=== PATIENT | male | born 1950 | race Caucasian/White ===

== ENCOUNTER 2020-01-19 10:29 | Emergency (ER) | payer MEDICARE ==
[~2020-01-19] VITALS: Ht 180.3 cm; Wt 150.1 kg
[~2020-01-19 10:29] MED LIST: ALDACTONE100 MG PO; ALDACTONE25 MG PO; ALEVE220 MG PO; FUROSEMIDE40 MG PO; IRON TAB PO; KEFLEX500 MG PO; LEVAQUIN500 MG PO; LORTAB 7.5-5001 EACH PO; METFORMIN HCL500 MG PO; NYQUIL D COLD177 ML PO; TYLENOL # 31 EA PO; TYLENOL WITH C1 EACH PO; Tylenol PO
--- OUTSIDE RECORDS SUMMARY | 2020-01-19 10:35 | XMS REPORT | Summary of Care ---
Author Author [facility] Organization [facility] Address Unknown Phone Unavailable Encounter GENARO Ocasio(MUNDO) [id number] Date(s): 08/07/15 - 08/07/[address] Discharge Disposition: Home Attending Physician: Rogelio Marte MD Referring Physician: Arron Cee NP [employer] Vital Signs No data available for this section Problem List No data available for this section Allergies, Adverse Reactions, Alerts Substance Reaction Severity Status NKDA Active Medications No data available for this section Results BODY FLUIDS Most recent to 1 oldest [Reference Range]: Albumin BF 0.2 g/dL *NA* (08/07/15 12:00 PM) Alb BF Type Paracen *NA* (08/07/15 12:00 PM) Prot BF Type Paracen *NA* (08/07/15 12:00 PM) LDH BF Type Paracen *NA* (08/07/15 12:00 PM) Protein BF 0.6 g/dL *NA* (08/07/15 12:00 PM) LDH BF 98 unit/L *NA* (08/07/15 12:00 PM) Color BF [Colorless] Yellow (08/07/15 12:00 PM) Clarity BF [Clear] Clear (08/07/15 12:00 PM) RBC BF 1820 /mm3 *NA* (08/07/15 12:00 PM) WBC BF 250 /mm3 *NA* (08/07/15 12:00 PM) Segs BF 4 % *NA* (08/07/15 12:00 PM) Lymph BF 4 % *NA* (08/07/15 12:00 PM) Macrophage BF 92 % *NA* (08/07/15 12:00 PM) Meso BF Occasional (08/07/15 12:00 PM) CellCnt BF Type Paracen (08/07/15 12:00 PM) Immunizations No data available for this section Procedures No data available for this section Social History No data available for this section Assessment and Plan No data available for this section
--- OUTSIDE RECORDS SUMMARY | 2020-01-19 10:35 | XMS REPORT | Summary of Care ---
Author Author [facility] Organization [facility] Address Unknown Phone Unavailable Encounter HQ Ninfa(MUNDO) [id number] Date(s): 11/12/16 - 11/12/16 [facility] [address] [place] [phone]- [phone] Discharge Disposition: Home or Self Care Attending Physician: Lay Reddy MD Referring Physician: Lay Reddy MD Vital Signs 1 2 3 Most recent to oldest [Reference Range]: 180.34 cm (11/06/16 2:50 PM) Height 97.7 DegF (11/12/16 6:38 AM) Temperature Oral [96.4-99.1 DegF] 128/71 mmHg (11/12/16 8:45 AM) 117/73 mmHg (11/12/16 8:30 AM) 109/73 mmHg (11/12/16 8:15 AM) Blood Pressure [90-140/60-90 mmHg] 16 BRMIN (11/12/16 8:45 AM) 17 BRMIN (11/12/16 8:30 AM) 16 BRMIN (11/12/16 8:15 AM) Respiratory Rate [14-20 BRMIN] 64 bpm (11/12/16 8:45 AM) 61 bpm (11/12/16 8:30 AM) 70 bpm (11/12/16 8:15 AM) Peripheral Pulse Rate [60-100 bpm] 119.091 kg (11/12/16 5:50 AM) Weight 36.62 m2 (11/12/16 5:50 AM) Body Mass Index Problem List Condition Effective Dates Status Health Status Informan t Diabetes(Confirmed) Active Dizziness(Confirmed) Active Hypertension(Confirm Active ed) Depression(Confirmed Active ) Fatty liver disease, Active nonalcoholic(Confirm ed) Neuropathy(Confirmed Active ) Allergies, Adverse Reactions, Alerts Substance Reaction Severity Status propranolol itching Active spironolactone blurred vision Active Medications ANES flumazenil 0.2 mg, 2 mL, Route: IVP, Drug form: INJ, PRN, Dosing Weight 119.091, kg, PRN Be nzodiazepine Reversal, Initial dose, Start date: 11/12/16 8:48:00 MANAGER OF PHOTOGRAPHY, Duration: 8 hr, Stop date: 11/12/16 16:47:00 MANAGER OF PHOTOGRAPHY Notes: (Same as: Romazicon) Start Date: 11/12/16 Stop Date: 11/12/16 Status: Completed ANES HYDROmorphone 0.5 mg, 0.25 mL, Route: IVP, Drug form: INJ, Q5Min, Dosing Weight 119.091, kg, P RN Pain Score 7-10, Start date: 11/12/16 8:48:00 MANAGER OF PHOTOGRAPHY, Duration: 8 doses or times , Stop date: 11/12/16 16:47:00 MANAGER OF PHOTOGRAPHY Notes: Same as Dilaudid Start Date: 11/12/16 Stop Date: 11/12/16 Status: Completed ANES naloxone 0.4 mg, 1 mL, Route: IVP, Drug form: INJ, Q2MIN, Dosing Weight 119.091, kg, PRN Narcotic Reversal, Start date: 11/12/16 8:48:00 MANAGER OF PHOTOGRAPHY, Duration: 8 doses or times, Stop date: 11/12/16 16:47:00 MANAGER OF PHOTOGRAPHY Notes: Same as Narcan Start Date: 11/12/16 Stop Date: 11/12/16 Status: Completed ANES ondansetron 4 mg, 2 mL, Route: IVP, Drug form: INJ, ONCE, Dosing Weight 119.091, kg, PRN Marcelo sea & Vomiting, Start date: 11/12/16 8:48:00 MANAGER OF PHOTOGRAPHY Notes: (Same as: Aman) MEDICATION WASTE Product Size: 4 mgProduct Was leon: ___ mg Start Date: 11/12/16 Stop Date: 11/13/16 Status: Discontinued Lactated Ringers 1,000 mL 1,000 mL, Rate: 40 ml/hr, Infuse over: 25 hr, Route: IV, Dosing Weight 119.091 k g, Total Volume: 1,000, Start date: 11/12/16 6:53:00 MANAGER OF PHOTOGRAPHY, Duration: 30 day, Stop date: 12/12/16 6:52:00 CDT Start Date: 11/12/16 Stop Date: 11/13/16 Status: Discontinued Saline Flush 0.9% 10 ml, Route: IVP, Drug Form: INJ, Dosing Weight 119.091, kg, PRN, PRN Line Flus h, Start date: 11/12/16 7:50:00 MANAGER OF PHOTOGRAPHY, Duration: 30 day, Stop date: 12/12/16 8:49: 00 CDT Notes: Same as: BD Posiflush Sterile Start Date: 11/12/16 Stop Date: 11/13/16 Status: Discontinued Results HEMATOLOGY Most recent to 1 oldest [Reference Range]: PT [12.0-14.7 12.6 seconds seconds] (11/12/16 6:10 AM) INR [0.85-1.17] 0.92 (11/12/16 6:10 AM) PTT [22.9-35.8 31.7 seconds seconds] (11/12/16 6:10 AM) Immunizations No data available for this section Procedures Procedure Date Related Diagnosis Body Site Kidney transplantation1 12/31/15 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 Alcohol Past, Previous treatment: N one. Smoking Status Former smoker; Stopped at a ge: 31; Exposure to Tobacco Smoke None; Cigarette Smoking Last 365 Days No; Reg Smoking Cessation Counseling No Assessment and Plan No data available for this section
--- OUTSIDE RECORDS SUMMARY | 2020-01-19 10:35 | XMS REPORT | Summary of Care ---
Author Author [facility] Organization [facility] Address Unknown Phone Unavailable Encounter GENARO Ocasio(MUNDO) [id number] Date(s): 08/15/15 - 08/15/15 [facility] [address] [place] [address] Discharge Disposition: Home Attending Physician: Rogelio Marte MD Referring Physician: Rogelio Marte MD Vital Signs No data available for this section Problem List No data available for this section Allergies, Adverse Reactions, Alerts Substance Reaction Severity Status NKDA Active Medications No data available for this section Results BODY FLUIDS Most recent to 1 oldest [Reference Range]: Color BF [Colorless] Yellow (08/15/15 11:36 AM) Clarity BF [Clear] Slight Cloudy (08/15/15 11:36 AM) Supernat BF Yellow [Colorless] *ABN* (08/15/15 11:36 AM) RBC BF 2350 /mm3 *NA* (08/15/15 11:36 AM) WBC BF 73 /mm3 *NA* (08/15/15 11:36 AM) Segs BF 5 % *NA* (08/15/15 11:36 AM) Lymph BF 42 % *NA* (08/15/15 11:36 AM) Eos BF 1 % *NA* (08/15/15 11:36 AM) Macrophage BF 52 % *NA* (08/15/15 11:36 AM) Meso BF Occasional (08/15/15 11:36 AM) CellCnt BF Type Paracen (08/15/15 11:36 AM) Immunizations No data available for this section Procedures No data available for this section Social History No data available for this section Assessment and Plan No data available for this section
--- OUTSIDE RECORDS SUMMARY | 2020-01-19 10:35 | XMS REPORT | Continuity of Care Document ---
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 Name Role Phone [facility] Exchange Unavailable Un available Problems Problem Status Onset Date Classification Date Reported Comments Source KNEE OSTEOARTHRITIS Active 11/12/2016 [facility] Subhash LEFT KNEE OSTEOARTHRITIS Active 11/12/2016 [facility] Subhash OSTEOARTHRITIS OF THE RT KNEE Active 11/06/2016 [facility] Subhash BRICE KNEE OSTEOARTHRITIS Active 10/23/2016 [facility] BDDC VARICES Active 10/29/2015 [facility] BDDC ASCITES Active 10/21/2015 [facility] DDC-ESOPHAGEAL VARCIES / COLON CANCER Active 10/11/2015 [facility] BDDC - ASCITES Active 08/05/2015 [facility] R18.8 Active 07/23/2015 [facility] Diabetes mellitus (disorder) A ctive Problem 08/2017 [facility] Dizziness (finding) Active Problem 11/22/2016 [facility] Hypertensive disorder, systemic arterial (disorder) Active Problem 11/22/2016 [facility] Depressive disorder (disorder) Active Problem 08/2017 [facility] Non-alcoholic fatty liver (disorder) Active Problem 08/2017 [facility] Neuropathy (disorder) Active Problem 11/22/2016 [facility] OSTEOARTHRITIS OF KNEE, UNSPECIFIED Active [facility] Medications Medication Details Route Status Patient Instructions Ordering Provider Order Date Source Insulin, Aspart, Human Notes: Roll in palms of hands gently; Do not shake vigorously. (Same as: NovoLOG) "single patient use only" WASTE: F/P - Black; E - Municipal Trash Bin Stable for 28 days at room temperature. Expires in days from Date No Longer Active 11/19/2016 [facility] Acetaminophen 325 MG / Hydrocodone Leonid trate 10 MG Oral Tablet [Gillespie 10/325] Notes: Do not exceed 4gm/day of acetamin ophen. (Same as: Gillespie 325/10) No Longer Active 11/19/2016 [facility] Acetaminophen 325 MG / Hydrocodone Leonid trate 5 MG Oral Tablet [Gillespie 5/325] Notes: (Same as: Gillespie 325/5) Do not ex ceed 4gm/day of acetaminophen. No Longer Activ e 11/19/2016 [facility] Ondansetron Notes: (Same as: Hai huerta) MEDICATION WASTE Product Size: 4 mg Product Wasted: ___ mg No Longer Active 11/19/2016 [facility] Morphine Notes: (Same as:MORPh ine Sulfate) No Longer Active 11/19/2016 [facility] Flumazenil Notes: (Same as: Ro mazicon) No Longer Active 11/19/2016 [facility] Naloxone Notes: Same as Narcan No Longer Active 11/19/2016 [facility] Hydromorphone Notes: Same as D ilaudid No Longer Active 11/19/2016 [facility] Hydralazine Notes: (Same as: A presoline) Push over 5 minutes No Longer Active 11/19/2016 [facility] Acetaminophen Notes: Infuse ov er 15 minutes Do not exceed 4gm/day of acetaminophen MEDICATION WASTE Product Size: 1000 mg Product Wasted: ___ mg No Longer Active 11/19/2016 [facility] Saline Flush 0.9% Notes: Same as: BD Posiflush Sterile No Longer Active 11/19/2016 [facility] Lactated Ringers 1,000 mL 1,00 0 mL, Rate: TKO, Route: IV, Dosing Weight 118.636 kg, Total Volume: 1,000, Start date: 11/19/16 7:49:00 [employer]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, Duration: 1 doses or times, Stop date: 11/19/16 15:48:00 FUN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 Inactive 11/19/2016 [facility] Hydromorphone Notes: Same as D ilaudid Inactive 11/12/2016 [facility] Naloxone Notes: Same as Narcan Inactive 11/12/2016 [facility] Flumazenil Notes: (Same as: Ro mazicon) Inactive 11/12/2016 [facility] Ondansetron Notes: (Same as: Hai huerta) MEDICATION WASTE Product Size: 4 mg Product Wasted: ___ mg No Longer Active 11/12/2016 [facility] Saline Flush 0.9% Notes: Same as: BD Posiflush Sterile No Longer Active 11/12/2016 [facility] Lactated Ringers 1,000 mL 1,00 0 mL, Rate: 40 ml/hr, Infuse over: 25 hr, Route: IV, Dosing Weight 119.091 kg, Total Volume: 1,000, Start date: 11/12/16 6:53:00 FUN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, Duration: 30 day, Stop date: 12/12/16 6:52:00 CDT No Longer Active 11/12/2016 [facility] Saline Flush 0.9% Notes: Same as: BD Posiflush Sterile No Longer Active 10/29/2016 [facility] Lactated Ringers 1,000 mL 1,00 0 mL, Rate: 25 ml/hr, Infuse over: 40 hr, Route: IV, Dosing Weight 117.727 kg, Total Volume: 1,000, Start date: 10/29/16 7:14:00 FUN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, Duration: 30 day, Stop date: 11/28/16 7:13:00 CDT No Longer Active 10/29/2016 [facility] Sulfamethoxazole 800 MG / Trimethoprim 1 60 MG Oral Tablet 1 tab, PO, Q-M-W-F, 0 Refill(s) Active 10/26/2016 [facility] Gunnison-3 1000 mg oral capsule 1 ,000 mg = 1 cap, PO, BID, 0 Refill(s) Active 10/26/2016 [facility] Linagliptin 5 MG Oral Tablet [Tradjenta] 5 mg = 1 tab, PO, QAM, 0 Refill(s) Active 10/26/2016 [facility] mycophenolate mofetil 500 mg oral tablet 500 mg = 1 tab, PO, BID, 0 Refill(s) Active 10/26/2016 [facility] multivitamin with minerals 0 R efill(s) Active 10/26/2016 [facility] modafinil 100 mg oral tablet 1 00 mg = 1 tab, PO, QAM, 0 Refill(s) Active 10/26/2016 [facility] mirtazapine 15 mg oral tablet 15 mg = 1 tab, PO, Bedtime, 0 Refill(s) Active 10/26/2016 [facility] metoprolol tartrate 25 mg oral tablet 12.5 mg = 0.5 tab, PO, BID, 0 Refill(s) Active 10/26/2016 [facility] magnesium oxide 400 mg oral tablet 400 mg = 1 tab, PO, Daily, 0 Refill(s) Active 10/26/2016 [facility] insulin detemir 100 UNT/ML Injectable So lution [Levemir] 15 unit, SUB-Q, Bedtime, 0 Refill(s) Active 10/26/2016 [facility] Furosemide 20 MG Oral Tablet 2 0 mg = 1 tab, PO, Daily, 0 Refill(s) Active 10/26/2016 [facility] escitalopram 10 mg oral tablet 10 mg = 1 tab, PO, Daily, 0 Refill(s) Active 10/26/2016 [facility] Ergocalciferol 56492 UNT Oral Capsule 50,000 IntlUnit = 1 cap, PO, Daily, 0 Refill(s) Active 10/26/2016 [facility] Calcium Carbonate 1250 MG / Cholecalcife rol 200 UNT Oral Tablet 1 tab, PO, BID, 0 Refill(s) Active 10/26/2016 [facility] cyclosporine, modified 100 MG Oral Capsule 100 mg = 1 cap, PO, Q12H, 0 Refill(s) Active 10/26/2016 [facility] aspirin 81 mg tablet, enteric coated 81 mg = 1 tab, PO, Daily, # 0 tab, 0 Refill(s) Active 10/26/2016 [facility] Allergies, Adverse Reactions, Alerts Substance Category Reaction Severity Reaction type Status Date Reported Comments Source propranolol Assertion itching Drug allergy Active [facility] spironolactone Assertion blurred vision Drug allergy Active [facility] Immunizations No Data Provided for This Section Results Order Name Results Value Reference Range Date Interpretation Comments Source HEMATOLOGY aPTT 33.6 22.9 - 35.8 11/19/2016 [facility] HEMATOLOGY PROTIME 13.0 12.0 - 14.7 11/19/2016 [facility] HEMATOLOGY INR 0.96 0.85 - 1.17 11/19/2016 [facility] HEMATOLOGY PROTIME 12.6 12.0 - 14.7 11/12/2016 [facility] HEMATOLOGY INR 0.92 0.85 - 1.17 11/12/2016 [facility] HEMATOLOGY aPTT 31.7 22.9 - 35.8 11/12/2016 [facility] CHEM PANEL eGFR 50 10/29/2016 Result Comment: The eGFR is calculated using the CKD-EPI formula. In most young, healthy individuals the eGFR will be >90 mL/min/1.73m2. The eGFR declines with age. An eGFR of 60-89 may be normal in some populations, particularly the elderly, for whom the CKD-EPI formula has not been extensively validated. Use of the eGFR is not recommended in the following populations:

Individuals with unstable creatinine concentrations, including patients and those with serious co-morbid conditions.

Patients with extremes in muscle mass or diet.

The data above are obtained from the National Kidney Disease Education Program (NKDEP) which additionally recommends that when the eGFR is used in patients with extremes of body mass index for purposes of drug dosing, the eGFR should be multiplied by the estimated BMI. [facility] CHEM PANEL Chloride Lvl 102 95 - 109 10/29/2016 [facility] CHEM PANEL CO2 27 24 - 32 10/29/2016 [facility] CHEM PANEL Calcium Lvl 8.3 8.5 - 10.5 10/29/2016 [facility] CHEM PANEL Total Protein 7.1 6.4 - 8.4 10/29/2016 [facility] CHEM PANEL Albumin Lvl 3.4 3.5 - 5.0 10/29/2016 [facility] CHEM PANEL Potassium Lvl 4.6 3.5 - 5.1 10/29/2016 [facility] CHEM PANEL Creatinine Lvl 1.44 0.50 - 1.40 10/29/2016 [facility] CHEM PANEL Sodium Lvl 139 135 - 145 10/29/2016 [facility] CHEM PANEL BUN 26 7 - 22 10/29/2016 [facility] CHEM PANEL Glucose Lvl 119 70 - 99 10/29/2016 [facility] CHEM PANEL ASPARTATE TRANSAMINASE 20 0 - 37 10/29/2016 [facility] CHEM PANEL ALANINE AMINOTRANSFERASE 26 0 - 65 10/29/2016 [facility] CHEM PANEL Bili Total 0.4 0.2 - 1.3 10/29/2016 [facility] CHEM PANEL Alk Phos 113 39 - 136 10/29/2016 [facility] CHEM PANEL A/G Ratio 0.9 0.7 - 1.6 10/29/2016 [facility] CHEM PANEL B/C Ratio 18 6 - 25 10/29/2016 [facility] CHEM PANEL Globulin 3.7 2.7 - 4.2 10/29/2016 [facility] CHEM PANEL AGAP 14.6 10.0 - 20.0 10/29/2016 [facility] HEMATOLOGY Platelet 147 133 - 450 10/29/2016 [facility] HEMATOLOGY MPV 8.9 7.4 - 10.4 10/29/2016 [facility] HEMATOLOGY MCV 89.1 80.0 - 94.0 10/29/2016 [facility] HEMATOLOGY MCH 29.0 27.0 - 31.0 10/29/2016 [facility] HEMATOLOGY RBC 4.53 4.70 - 6.10 10/29/2016 [facility] HEMATOLOGY Hgb 13.2 14.0 - 18.0 10/29/2016 [facility] HEMATOLOGY Hct 40.4 42.0 - 54.0 10/29/2016 [facility] HEMATOLOGY WBC 7.5 3.7 - 10.4 10/29/2016 [facility] HEMATOLOGY RDW 15.6 11.5 - 14.5 10/29/2016 [facility] HEMATOLOGY MCHC 32.6 32.0 - 36.0 10/29/2016 [facility] HEMATOLOGY INR 0.92 0.85 - 1.17 10/29/2016 [facility] HEMATOLOGY aPTT 33.1 22.9 - 35.8 10/29/2016 [facility] HEMATOLOGY PROTIME 12.6 12.0 - 14.7 10/29/2016 [facility] HEMATOLOGY Segs 47.3 45.0 - 75.0 10/29/2016 [facility] HEMATOLOGY Lymphocytes 35.9 20.0 - 40.0 10/29/2016 [facility] HEMATOLOGY Eosinophils 3.3 0.0 - 4.0 10/29/2016 [facility] HEMATOLOGY Monocytes 12.7 2.0 - 12.0 10/29/2016 [facility] HEMATOLOGY Monocytes # 1.0 0.0 - 0.8 10/29/2016 [facility] HEMATOLOGY Eosinophils # 0.2 0.0 - 0.5 10/29/2016 [facility] HEMATOLOGY Basophils # 0.1 0.0 - 0.2 10/29/2016 [facility] HEMATOLOGY Lymphocytes # 2.7 1.0 - 5.5 10/29/2016 [facility] HEMATOLOGY Basophils 0.8 0.0 - 1.0 10/29/2016 [facility] HEMATOLOGY Segs-Bands # 3.6 1.5 - 8.1 10/29/2016 [facility] CHEM PANEL Phosphorus 3.1 2.5 - 4.5 10/24/2015 [facility] CHEM PANEL Magnesium Lvl 2.2 1.8 - 2.4 10/24/2015 [facility] CHEM PANEL Bili Indirect 3.3 0.0 - 1.0 10/24/2015 [facility] CHEM PANEL A/G Ratio 0.8 0.7 - 1.6 10/24/2015 [facility] CHEM PANEL Globulin 2.9 2.0 - 4.0 10/24/2015 [facility] CHEM PANEL Bili Direct 1.6 0.0 - 0.3 10/24/2015 [facility] CHEM PANEL Bili Total 4.9 0.2 - 1.3 10/24/2015 [facility] CHEM PANEL Alk Phos 125 39 - 136 10/24/2015 [facility] CHEM PANEL AST 41 0 - 37 10/24/2015 [facility] CHEM PANEL ALT 24 0 - 65 10/24/2015 [facility] CHEM PANEL Albumin Lvl 2.4 3.5 - 5.0 10/24/2015 [facility] CHEM PANEL Total Protein 5.3 6.4 - 8.4 10/24/2015 [facility] CHEM PANEL eGFR 26 10/24/2015 Result Comment: The eGFR is calculated using the CKD-EPI formula. In most young, healthy individuals the eGFR will be >90 mL/min/1.73m2. The eGFR declines with age. An eGFR of 60-89 may be normal in some populations, particularly the elderly, for whom the CKD-EPI formula has not been extensively validated. Use of the eGFR is not recommended in the following populations:

Individuals with unstable creatinine concentrations, including patients and those with serious co-morbid conditions.

Patients with extremes in muscle mass or diet.

The data above are obtained from the National Kidney Disease Education Program (NKDEP) which additionally recommends that when the eGFR is used in patients with extremes of body mass index for purposes of drug dosing, the eGFR should be multiplied by the estimated BMI. [facility] CHEM PANEL Calcium Lvl 7.6 8.5 - 10.5 10/24/2015 [facility] CHEM PANEL CO2 26 24 - 32 10/24/2015 [facility] CHEM PANEL Chloride Lvl 106 95 - 109 10/24/2015 [facility] CHEM PANEL Potassium Lvl 3.8 3.5 - 5.1 10/24/2015 [facility] CHEM PANEL Creatinine Lvl 2.50 0.50 - 1.40 10/24/2015 [facility] CHEM PANEL Sodium Lvl 143 135 - 145 10/24/2015 [facility] CHEM PANEL Glucose Lvl 131 70 - 99 10/24/2015 [facility] CHEM PANEL BUN 24 7 - 22 10/24/2015 [facility] CHEM PANEL AGAP 14.8 10.0 - 20.0 10/24/2015 [facility] HEMATOLOGY PTT 39.7 22.9 - 35.8 10/24/2015 [facility] HEMATOLOGY INR 1.97 0.85 - 1.17 10/24/2015 [facility] HEMATOLOGY PT 22.7 12.0 - 14.7 10/24/2015 [facility] HEMATOLOGY RDW 15.7 11.5 - 14.5 10/24/2015 [facility] HEMATOLOGY MPV 9.4 7.4 - 10.4 10/24/2015 [facility] HEMATOLOGY Platelet 52 133 - 450 10/24/2015 [facility] HEMATOLOGY Hgb 8.9 14.0 - 18.0 10/24/2015 [facility] HEMATOLOGY MCHC 34.3 32.0 - 36.0 10/24/2015 [facility] HEMATOLOGY MCH 36.0 27.0 - 31.0 10/24/2015 [facility] HEMATOLOGY MCV 105.0 80.0 - 94.0 10/24/2015 [facility] HEMATOLOGY Hct 25.9 42.0 - 54.0 10/24/2015 [facility] HEMATOLOGY WBC 4.9 3.7 - 10.4 10/24/2015 [facility] HEMATOLOGY RBC 2.46 4.70 - 6.10 10/24/2015 [facility] HEMATOLOGY Basophils # 0.1 0.0 - 0.2 10/24/2015 [facility] HEMATOLOGY Macrocyte 1+ *ABN* (10/24/15 9:59 AM) None Seen 10/24/2015 [facility] HEMATOLOGY Lymphocytes # 1.4 1.0 - 5.5 10/24/2015 [facility] HEMATOLOGY Eosinophils # 0.3 0.0 - 0.5 10/24/2015 [facility] HEMATOLOGY Monocytes # 0.7 0.0 - 0.8 10/24/2015 [facility] HEMATOLOGY Segs-Bands # 2.3 1.5 - 8.1 10/24/2015 [facility] HEMATOLOGY Eosinophils 7.2 0.0 - 4.0 10/24/2015 [facility] HEMATOLOGY Basophils 1.1 0.0 - 1.0 10/24/2015 [facility] HEMATOLOGY Monocytes 14.4 2.0 - 12.0 10/24/2015 [facility] HEMATOLOGY Segs 47.7 45.0 - 75.0 10/24/2015 [facility] HEMATOLOGY Lymphocytes 29.6 20.0 - 40.0 10/24/2015 [facility] BODY FLUIDS CellCnt BF Type Para tony (10/24/15 8:45 AM) 10/24/2015 [facility] BODY FLUIDS Color BF [place] ow (10/24/15 8:45 AM) Colorless 10/24/2015 [facility] BODY FLUIDS Clarity BF Slig ht Cloudy (10/24/15 8:45 AM) Clear 10/24/2015 [facility] BODY FLUIDS [place] BF Few (10/24/15 8:45 AM) 10/24/2015 [facility] BODY FLUIDS Supernat BF [place] ow *ABN* (10/24/15 8:45 AM) Colorless 10/24/2015 [facility] BODY FLUIDS WBC BF 470 10/24/2015 [facility] BODY FLUIDS RBC BF 4975 10/24/2015 [facility] BODY FLUIDS Segs BF 9 10/24/2015 [facility] BODY FLUIDS Lymph BF 37 10/24/2015 [facility] BODY FLUIDS Macrophage BF 54 10/24/2015 [facility] BODY FLUIDS WBC BF 575 08/29/2015 [facility] BODY FLUIDS Color BF [place] ow (08/29/15 12:33 PM) Colorless 08/29/2015 [facility] BODY FLUIDS Clarity BF Mode rate Cloudy *ABN* (08/29/15 12:33 PM) Clear 08/29/2015 [facility] BODY FLUIDS CellCnt BF Type Para tony (08/29/15 12:33 PM) 08/29/2015 [facility] BODY FLUIDS RBC BF 2820 08/29/2015 [facility] BODY FLUIDS Lymph BF 13 08/29/2015 [facility] BODY FLUIDS Macrophage BF 86 08/29/2015 [facility] BODY FLUIDS Segs BF 1 08/29/2015 [facility] BODY FLUIDS Color BF [place] ow (08/15/15 11:36 AM) Colorless 08/15/2015 [facility] BODY FLUIDS Clarity BF Slig ht Cloudy (08/15/15 11:36 AM) Clear 08/15/2015 [facility] BODY FLUIDS RBC BF 2350 08/15/2015 [facility] BODY FLUIDS Supernat BF [place] *ABN* (08/15/15 11:36 AM) Colorless 08/15/2015 [facility] BODY FLUIDS WBC BF 73 08/15/2015 [facility] BODY FLUIDS [place] BF Occa sional (08/15/15 11:36 AM) 08/15/2015 [facility] BODY FLUIDS Eos BF 1 08/15/2015 [facility] BODY FLUIDS CellCnt BF Type Para tony (08/15/15 11:36 AM) 08/15/2015 [facility] BODY FLUIDS Macrophage BF 52 08/15/2015 [facility] BODY FLUIDS Segs BF 5 08/15/2015 [facility] BODY FLUIDS Lymph BF 42 08/15/2015 [facility] BODY FLUIDS LDH BF Type Para tony *NA* (08/07/15 12:00 PM) 08/07/2015 [facility] BODY FLUIDS LDH BF 98 08/07/2015 [facility] BODY FLUIDS Prot BF Type Para tony *NA* (08/07/15 12:00 PM) 08/07/2015 [facility] BODY FLUIDS Protein BF 0.6 08/07/2015 [facility] BODY FLUIDS Segs BF 4 08/07/2015 [facility] BODY FLUIDS Lymph BF 4 08/07/2015 [facility] BODY FLUIDS Macrophage BF 92 08/07/2015 [facility] BODY FLUIDS Clarity BF Carmen r (08/07/15 12:00 PM) Clear 08/07/2015 [facility] BODY FLUIDS CellCnt BF Type Para tony (08/07/15 12:00 PM) 08/07/2015 [facility] BODY FLUIDS Color BF [place] ow (08/07/15 12:00 PM) Colorless 08/07/2015 [facility] BODY FLUIDS [place] BF Occa sional (08/07/15 12:00 PM) 08/07/2015 [facility] BODY FLUIDS WBC BF 250 08/07/2015 [facility] BODY FLUIDS RBC BF 1820 08/07/2015 [facility] BODY FLUIDS Alb BF Type Para tony *NA* (08/07/15 12:00 PM) 08/07/2015 [facility] BODY FLUIDS Albumin BF 0.2 08/07/2015 [facility] Pathology Reports No Data Provided for This Section Diagnostic Reports No Data Provided for This Section Consultation Notes No Data Provided for This Section Discharge Summaries No Data Provided for This Section History and Physicals No Data Provided for This Section Vital Signs Vital Sign Value Date Comments Source Respitory Rate 16 11/19/2016 [facility] Systolic (mm Hg) 125 11/19/2016 [facility] Diastolic (mm Hg) 75 11/19/2016 [facility] Respitory Rate 16 11/19/2016 [facility] Systolic (mm Hg) 107 11/19/2016 [facility] Diastolic (mm Hg) 70 11/19/2016 [facility] Respitory Rate 14 11/19/2016 [facility] Systolic (mm Hg) 111 11/19/2016 [facility] Diastolic (mm Hg) 69 11/19/2016 [facility] Temperature Oral (F) 98.2 F 11/19/2016 [facility] Heart Rate 69 11/19/2016 [facility] BMI Calculated 36.48 11/19/2016 [facility] Weight 118.636 11/19/2016 [facility] Height 180.34 cm 11/13/2016 [facility] Respitory Rate 16 11/12/2016 [facility] Heart Rate 64 11/12/2016 [facility] Systolic (mm Hg) 128 11/12/2016 [facility] Diastolic (mm Hg) 71 11/12/2016 [facility] Heart Rate 61 11/12/2016 [facility] Respitory Rate 17 11/12/2016 [facility] Systolic (mm Hg) 117 11/12/2016 [facility] Diastolic (mm Hg) 73 11/12/2016 [facility] Heart Rate 70 11/12/2016 [facility] Respitory Rate 16 11/12/2016 [facility] Systolic (mm Hg) 109 11/12/2016 [facility] Diastolic (mm Hg) 73 11/12/2016 [facility] Temperature Oral (F) 97.7 F 11/12/2016 [facility] BMI Calculated 36.62 11/12/2016 [facility] Weight 119.091 11/12/2016 [facility] Height 180.34 cm 11/06/2016 [facility] Heart Rate 65 10/29/2016 [facility] Respitory Rate 16 10/29/2016 [facility] Systolic (mm Hg) 115 10/29/2016 [facility] Diastolic (mm Hg) 70 10/29/2016 [facility] Heart Rate 67 10/29/2016 [facility] Respitory Rate 15 10/29/2016 [facility] Systolic (mm Hg) 112 10/29/2016 [facility] Diastolic (mm Hg) 70 10/29/2016 [facility] Heart Rate 68 10/29/2016 [facility] Respitory Rate 14 10/29/2016 [facility] Systolic (mm Hg) 105 10/29/2016 [facility] Diastolic (mm Hg) 63 10/29/2016 [facility] BMI Calculated 36.2 10/29/2016 [facility] Height 180.34 cm 10/29/2016 [facility] Weight 117.727 10/29/2016 [facility] Temperature Oral (F) 97.7 F 10/29/2016 [facility] Weight 113.636 10/23/2016 [facility] BMI Calculated 34.94 10/23/2016 [facility] Height 180.34 cm 10/23/2016 [facility] Encounters Location Location Details Encounter Type Encounter Number Reason For Visit Attending Provider ADM Date DC Date Status Source [facility] Bedded Outpatient [id number] Rogelio Marte 08/07/2015 08/07/2015 [facility] [id number] Rogelio Marte 08/15/2015 08/15/2015 [facility] Bedded Outpatient [id number] Rogelio Marte 08/29/2015 08/29/2015 [facility] Bedded Outpatient [id number] Melissa Masterson 10/16/2015 10/16/2015 [facility] Bedded Outpatient [id number] Rogelio Marte 10/24/2015 10/24/2015 [facility] [id number] [facility] 10/29/2016 10/30/2016 [facility] Day Surgery [id number] [facility] 11/12/2016 11/13/2016 [facility] Orth[facility] Day Surgery [id number] [facility] 11/19/2016 11/20/2016 [facility] Procedures Procedure Code Date Perfomer Comments Source Kidney transplantation<sup>1</sup> [id number] 12/31/2015 right [facility]o and Spine Transplantation of liver [id number] 12/31/2015 [facility] Knee replacement<sup>2</sup> 1 [id number] 09/13/2008 left [facility]o and Spine Elbow joint operations [id number] Ortho and Spine Assessment and Plan No Data Provided for This Section Plan of Care No Data Provided for This Section Social History Social History Date Source Social History TypeResponse Substance Abuse Use: None. Alcohol Past, Previous treatment: None. Smoking Status Former smoker; Stopped at age: 31; Exposure to Tobacco Smoke None; Cigarette Smoking Last 365 Days No; Reg Smoking Cessation Counseling No 11/12/2016 [facility] No data available for this section 10/24/2015 [facility] Family History No Data Provided for This Section Advance Directives No Data Provided for This Section Functional Status No Data Provided for This Section
--- OUTSIDE RECORDS SUMMARY | 2020-01-19 10:35 | XMS REPORT | Summary of Care ---
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 Vital Signs No data available for this section Problem List No data available for this section Allergies, Adverse Reactions, Alerts Substance Reaction Severity Status NKDA Active Medications No data available for this section Results ELECTROLYTES Most recent to 1 oldest [Reference Range]: Sodium Lvl [135-145 143 mEq/L mEq/L] (10/24/15 9:59 AM) Potassium Lvl 3.8 mEq/L [3.5-5.1 mEq/L] (10/24/15 9:59 AM) Chloride Lvl [95-109 106 mEq/L mEq/L] (10/24/15 9:59 AM) CO2 [24-32 mEq/L] 26 mEq/L (10/24/15 9:59 AM) AGAP [10.0-20.0 14.8 mEq/L mEq/L] (10/24/15 9:59 AM) CHEM PANEL Most recent to 1 oldest [Reference Range]: Creatinine Lvl 2.50 mg/dL [0.50-1.40 mg/dL] *HI* (10/24/15 9:59 AM) eGFR 26 mL/min/1.73m2 1 *NA* (10/24/15 9:59 AM) BUN [7-22 mg/dL] 24 mg/dL *HI* (10/24/15 9:59 AM) Glucose Lvl [70-99 131 mg/dL mg/dL] *HI* (10/24/15 9:59 AM) Total Protein 5.3 g/dL [6.4-8.4 g/dL] *LOW* (10/24/15 9:59 AM) Albumin Lvl [3.5-5.0 2.4 g/dL g/dL] *LOW* (10/24/15 9:59 AM) Globulin [2.0-4.0 2.9 g/dL g/dL] (10/24/15 9:59 AM) A/G Ratio [0.7-1.6] 0.8 (10/24/15 9:59 AM) Calcium Lvl 7.6 mg/dL [8.5-10.5 mg/dL] *LOW* (10/24/15 9:59 AM) Phosphorus [2.5-4.5 3.1 mg/dL mg/dL] (10/24/15 9:59 AM) Magnesium Lvl 2.2 mg/dL [1.8-2.4 mg/dL] (10/24/15 9:59 AM) ALT [0-65 unit/L] 24 unit/L (10/24/15 9:59 AM) AST [0-37 unit/L] 41 unit/L *HI* (10/24/15 9:59 AM) Alk Phos [39-136 125 unit/L unit/L] (10/24/15 9:59 AM) Bili Total [0.2-1.3 4.9 mg/dL mg/dL] *HI* (10/24/15 9:59 AM) Bili Direct [0.0-0.3 1.6 mg/dL mg/dL] *HI* (10/24/15 9:59 AM) Bili Indirect 3.3 mg/dL [0.0-1.0 mg/dL] *HI* (10/24/15 9:59 AM) 1Result Comment: The eGFR is calculated using the [...] from the National Kidney Disease Education Program ( NKDEP) which additionally recommends that when the eGFR is used in patients with extremes of body mass index for purposes of drug dosing, the eGFR should be mul tiplied by the estimated BMI. BODY FLUIDS Most recent to 1 oldest [Reference Range]: Color BF [Colorless] Yellow (10/24/15 8:45 AM) Clarity BF [Clear] Slight Cloudy (10/24/15 8:45 AM) Supernat BF Yellow [Colorless] *ABN* (10/24/15 8:45 AM) RBC BF 4975 /mm3 *NA* (10/24/15 8:45 AM) WBC BF 470 /mm3 *NA* (10/24/15 8:45 AM) Segs BF 9 % *NA* (10/24/15 8:45 AM) Lymph BF 37 % *NA* (10/24/15 8:45 AM) Macrophage BF 54 % *NA* (10/24/15 8:45 AM) Meso BF Few (10/24/15 8:45 AM) CellCnt BF Type Paracen (10/24/15 8:45 AM) HEMATOLOGY Most recent to 1 oldest [Reference Range]: WBC [3.7-10.4 K/CMM] 4.9 K/CMM (10/24/15 9:59 AM) RBC [4.70-6.10 2.46 M/CMM M/CMM] *LOW* (10/24/15 9:59 AM) Hgb [14.0-18.0 g/dL] 8.9 g/dL *LOW* (10/24/15 9:59 AM) Hct [42.0-54.0 %] 25.9 % *LOW* (10/24/15 9:59 AM) MCV [80.0-94.0 fL] 105.0 fL *HI* (10/24/15 9:59 AM) MCH [27.0-31.0 pg] 36.0 pg *HI* (10/24/15 9:59 AM) MCHC [32.0-36.0 34.3 g/dL g/dL] (10/24/15 9:59 AM) RDW [11.5-14.5 %] 15.7 % *HI* (10/24/15 9:59 AM) Platelet [133-450 52 K/CMM K/CMM] *LOW* (10/24/15 9:59 AM) MPV [7.4-10.4 fL] 9.4 fL (10/24/15 9:59 AM) Segs [45.0-75.0 %] 47.7 % (10/24/15 9:59 AM) Lymphocytes 29.6 % [20.0-40.0 %] (10/24/15 9:59 AM) Monocytes [2.0-12.0 14.4 % %] *HI* (10/24/15 9:59 AM) Eosinophils [0.0-4.0 7.2 % %] *HI* (10/24/15 9:59 AM) Basophils [0.0-1.0 1.1 % %] *HI* (10/24/15 9:59 AM) Segs-Bands # 2.3 K/CMM [1.5-8.1 K/CMM] (10/24/15 9:59 AM) Lymphocytes # 1.4 K/CMM [1.0-5.5 K/CMM] (10/24/15 9:59 AM) Monocytes # [0.0-0.8 0.7 K/CMM K/CMM] (10/24/15 9:59 AM) Eosinophils # 0.3 K/CMM [0.0-0.5 K/CMM] (10/24/15 9:59 AM) Basophils # [0.0-0.2 0.1 K/CMM K/CMM] (10/24/15 9:59 AM) Macrocyte [None 1+ Seen] *ABN* (10/24/15 9:59 AM) PT [12.0-14.7 22.7 seconds seconds] *HI* (10/24/15 9:59 AM) INR [0.85-1.17] 1.97 *HI* (10/24/15 9:59 AM) PTT [22.9-35.8 39.7 seconds seconds] *HI* (10/24/15 9:59 AM) Immunizations No data available for this section Procedures No data available for this section Social History No data available for this section Assessment and Plan No data available for this section
--- OUTSIDE RECORDS SUMMARY | 2020-01-19 10:35 | XMS REPORT | Summary of Care ---
Author Author [facility] Organization [facility] Address Unknown Phone Unavailable Encounter HQ Ninfa(MUDNO) [id number] Date(s): 11/19/16 - 11/19/16 [facility] [address] [place] [address]- [phone] Discharge Disposition: Home or Self Care Attending Physician: Lay Reddy MD Referring Physician: Lay Reddy MD Vital Signs 1 2 3 Most recent to oldest [Reference Range]: 180.34 cm (11/13/16 10:16 AM) Height 98.2 DegF (11/19/16 7:16 AM) Temperature Oral [96.4-99.1 DegF] 125/75 mmHg (11/19/16 9:15 AM) 107/70 mmHg (11/19/16 9:00 AM) 111/69 mmHg (11/19/16 8:45 AM) Blood Pressure [90-140/60-90 mmHg] 16 BRMIN (11/19/16 9:15 AM) 16 BRMIN (11/19/16 9:00 AM) 14 BRMIN (11/19/16 8:45 AM) Respiratory Rate [14-20 BRMIN] 69 bpm (11/19/16 7:16 AM) Peripheral Pulse Rate [60-100 bpm] 118.636 kg (11/19/16 6:48 AM) Weight 36.48 m2 (11/19/16 6:48 AM) Body Mass Index Problem List Condition Effective Dates Status Health Status Informan t Diabetes(Confirmed) Active Dizziness(Confirmed) Active Hypertension(Confirm Active ed) Depression(Confirmed Active ) Fatty liver disease, Active nonalcoholic(Confirm ed) Neuropathy(Confirmed Active ) Allergies, Adverse Reactions, Alerts Substance Reaction Severity Status propranolol itching Active spironolactone blurred vision Active Medications ANES acetaminophen 1,000 mg, 100 mL, Route: IVPB, Drug form: INJ, ONCE, Dosing Weight 118.636, kg, PRN Pain Score 1-3, Start date: 11/19/16 9:19:00 EVISCERATOR, Duration: 1 doses or times , Stop date: Limited # of times Notes: Infuse over 15 minutesDo not exceed 4gm/day of acetaminophen MEDICAT ION WASTE Product Size: 1000 mgProduct Wasted: ___ mg Start Date: 11/19/16 Stop Date: 11/20/16 Status: Discontinued ANES flumazenil 0.2 mg, 2 mL, Route: IVP, Drug form: INJ, PRN, Dosing Weight 118.636, kg, PRN Be nzodiazepine Reversal, Initial dose, Start date: 11/19/16 9:19:00 EVISCERATOR, Duration: 30 day, Stop date: 12/19/16 10:18:00 CDT Notes: (Same as: Romazicon) Start Date: 11/19/16 Stop Date: 11/20/16 Status: Discontinued ANES hydrALAZINE 10 mg, 0.5 mL, Route: IVP, Drug form: INJ, Q20Min, Dosing Weight 118.636, kg, NH N Elevated BP, Start date: 11/19/16 9:19:00 EVISCERATOR, Duration: 2 doses or times, Sto p date: Limited # of times Notes: (Same as: Apresoline)Push over 5 minutes Start Date: 11/19/16 Stop Date: 11/20/16 Status: Discontinued ANES HYDROmorphone 0.5 mg, 0.25 mL, Route: IVP, Drug form: INJ, Q5Min, Dosing Weight 118.636, kg, P RN Pain Score 7-10, Start date: 11/19/16 9:19:00 EVISCERATOR, Duration: 4 doses or times , Stop date: Limited # of times Notes: Same as Dilaudid Start Date: 11/19/16 Stop Date: 11/20/16 Status: Discontinued ANES morphine Sulfate 2 mg, 0.2 mL, Route: IVP, Drug form: INJ, Q5Min, Dosing Weight 118.636, kg, PRN Pain Score 4-6, Start date: 11/19/16 9:19:00 EVISCERATOR, Duration: 5 doses or times, St op date: Limited # of times Notes: (Same as:MORPhine Sulfate) Start Date: 11/19/16 Stop Date: 11/20/16 Status: Discontinued ANES naloxone 0.4 mg, 1 mL, Route: IVP, Drug form: INJ, Q2MIN, Dosing Weight 118.636, kg, PRN Narcotic Reversal, Start date: 11/19/16 9:19:00 EVISCERATOR, Duration: 8 doses or times, Stop date: Limited # of times Notes: Same as Narcan Start Date: 11/19/16 Stop Date: 11/20/16 Status: Discontinued ANES ondansetron 4 mg, 2 mL, Route: IVP, Drug form: INJ, ONCE, Dosing Weight 118.636, kg, PRN Marcelo sea & Vomiting, Start date: 11/19/16 9:19:00 EVISCERATOR Notes: (Same as: Aman) MEDICATION WASTE Product Size: 4 mgProduct Was leon: ___ mg Start Date: 11/19/16 Stop Date: 11/20/16 Status: Discontinued insulin aspart 6 unit, 0.06 mL, Route: SUB-Q, Drug form: SOLN, Sliding Scale, Dosing Weight 118 .636, kg, PRN Blood Glucose Results, Start date: 11/19/16 9:19:00 EVISCERATOR, Duration: 30 day, Stop date: 12/19/16 10:18:00 CDT Notes: Roll in palms of hands gently; Do not shake vigorously. (Same as: Jessica Zazueta)"single patient use only"WASTE: F/P - Black; E - Municipal Trash Bin Stable f or 28 days at room temperature.Expires in days from Date Start Date: 11/19/16 Stop Date: 11/20/16 Status: Discontinued insulin aspart 10 unit, 0.1 mL, Route: SUB-Q, Drug form: SOLN, Sliding Scale, Dosing Weight 118 .636, kg, PRN Blood Glucose Results, Start date: 11/19/16 9:19:00 EVISCERATOR, Duration: 30 day, Stop date: 12/19/16 10:18:00 CDT Notes: Roll in palms of hands gently; Do not shake vigorously. (Same as: NovoHEIDE Zazueta)"single patient use only"WASTE: F/P - Black; E - Municipal Trash Bin Stable f or 28 days at room temperature.Expires in days from Date Start Date: 11/19/16 Stop Date: 11/20/16 Status: Discontinued insulin aspart 8 unit, 0.08 mL, Route: SUB-Q, Drug form: SOLN, Sliding Scale, Dosing Weight 118 .636, kg, PRN Blood Glucose Results, Start date: 11/19/16 9:19:00 EVISCERATOR, Duration: 30 day, Stop date: 12/19/16 10:18:00 CDT Notes: Roll in palms of hands gently; Do not shake vigorously. (Same as: NovoHEIDE Zazueta)"single patient use only"WASTE: F/P - Black; E - Municipal Trash Bin Stable f or 28 days at room temperature.Expires in days from Date Start Date: 11/19/16 Stop Date: 11/20/16 Status: Discontinued insulin aspart 2 unit, 0.02 mL, Route: SUB-Q, Drug form: SOLN, Sliding Scale, Dosing Weight 118 .636, kg, PRN Blood Glucose Results, Start date: 11/19/16 9:19:00 EVISCERATOR, Duration: 30 day, Stop date: 12/19/16 10:18:00 CDT Notes: Roll in palms of hands gently; Do not shake vigorously. (Same as: NovoHEIDE Zazueta)"single patient use only"WASTE: F/P - Black; E - Municipal Trash Bin Stable f or 28 days at room temperature.Expires in days from Date Start Date: 11/19/16 Stop Date: 11/20/16 Status: Discontinued insulin aspart 4 unit, 0.04 mL, Route: SUB-Q, Drug form: SOLN, Sliding Scale, Dosing Weight 118 .636, kg, PRN Blood Glucose Results, Start date: 11/19/16 9:19:00 EVISCERATOR, Duration: 30 day, Stop date: 12/19/16 10:18:00 CDT Notes: Roll in palms of hands gently; Do not shake vigorously. (Same as: Jessica Zazueta)"single patient use only"WASTE: F/P - Black; E - Municipal Trash Bin Stable f or 28 days at room temperature.Expires in days from Date Start Date: 11/19/16 Stop Date: 11/20/16 Status: Discontinued Lactated Ringers 1,000 mL 1,000 mL, Rate: TKO, Route: IV, Dosing Weight 118.636 kg, Total Volume: 1,000, S tart date: 11/19/16 7:49:00 EVISCERATOR, Duration: 1 doses or times, Stop date: 11/19/16 15:48:00 EVISCERATOR Start Date: 11/19/16 Stop Date: 11/19/16 Status: Completed Hamilton 10/325 oral tablet 1 tab, Route: PO, Drug Form: TAB, Dosing Weight 118.636, kg, ONCE, PRN Pain Scor e 4-6, Start date: 11/19/16 9:19:00 EVISCERATOR Notes: Do not exceed 4gm/day of acetaminophen. (Same as: Hamilton 325/10) Start Date: 11/19/16 Stop Date: 11/20/16 Status: Discontinued Hamilton 5/325 oral tablet 1 tab, Route: PO, Drug Form: TAB, Dosing Weight 118.636, kg, ONCE, PRN Pain Scor e 1-3, Start date: 11/19/16 9:19:00 EVISCERATOR Notes: (Same as: Hamilton 325/5) Do not exceed 4gm/day of acetaminophen. Start Date: 11/19/16 Stop Date: 11/20/16 Status: Discontinued Saline Flush 0.9% 10 ml, Route: IVP, Drug Form: INJ, Dosing Weight 118.636, kg, PRN, PRN Line Flus h, Start date: 11/19/16 9:05:00 EVISCERATOR, Duration: 30 day, Stop date: 12/19/16 10:04 :00 CDT Notes: Same as: BD Posiflush Sterile Start Date: 11/19/16 Stop Date: 11/20/16 Status: Discontinued Results HEMATOLOGY Most recent to 1 oldest [Reference Range]: PT [12.0-14.7 13.0 seconds seconds] (11/19/16 6:49 AM) INR [0.85-1.17] 0.96 (11/19/16 6:49 AM) PTT [22.9-35.8 33.6 seconds seconds] (11/19/16 6:49 AM) Immunizations No data available for this section Procedures Procedure Date Related Diagnosis Body Site Kidney transplantation1 12/31/15 Transplantation of liver 12/31/15 Knee replacement2 2008 Elbow joint operations 1right 2left Social History Social History Type Response Substance Abuse Use: None. Alcohol Past, Previous treatment: N one. Smoking Status Former smoker; Stopped at a ge: 31; Exposure to Tobacco Smoke None; Cigarette Smoking Last 365 Days No; Reg Smoking Cessation Counseling No Assessment and Plan No data available for this section
--- OUTSIDE RECORDS SUMMARY | 2020-01-19 10:35 | XMS REPORT | Clinical Summary ---
Author Author [facility] Address Unknown Phone Unavailable Care Team Providers Care Senior Power Scheduler Name Role Phone Angela Mcgrath MD PCP Allergies Comments Active Allergy Reactions Severity Noted Date Propranolol Itching, 02/01/2016 Swelling Blurred vision Spironolactone Other (See 01/23/2016 Comments) Medications End Date Status Medication Sig Dispensed Refills Start Date Active linagliptin (TRADJENTA) 5 Take 5 mg by 0 mg tablet mouth daily with breakfast. Active FOLIC Take 1 tablet 0 ACID/MULTIVIT-MIN/LUTEIN by mouth (SPECTRAVITE ADULT 50+ daily. ORAL) Active escitalopram (LEXAPRO) 10 Take 10 mg by 0 MG tablet mouth every morning. Active FENOFIBRATE ORAL Take 1 tablet 0 by mouth daily. 130mg Active pravastatin (PRAVACHOL) TAKE 1 TABLET 90 tablet 2 20 MG tablet BY MOUTH IN 9 THE EVENING 04/01/2021 Active ergocalciferol (VITAMIN Take 1 12 capsule 3 D2) 50,000 unit capsule capsule 9 (50,000 Units total) by mouth once a week. On Wednesday04/01/2021 Active omega-3 fatty acids-fish Take 1 90 capsule 3 0 oil (FISH OIL) 300-1,000 capsule (1 g 9 mg capsule total) by mouth daily. 04/01/2021 Active pantoprazole (PROTONIX) Take 1 tablet 90 tablet 3 40 MG EC tablet (40 mg total) 9 by mouth daily. Active insulin detemir U-100 Inject 40 0 (LEVEMIR) 100 unit/mL Units under injection the skin 2 (two) times a day. 05/12/2022 Active metoprolol tartrate Take 0.5 45 tablet 2 (LOPRESSOR) 25 mg tablet tablets (12.5 9 mg total) by mouth every morning. Takes 1/2 tab of the 25mg in the morning Active furosemide (LASIX) 20 mg TAKE 1 TABLET 180 tablet 3 tablet BY MOUTH 9 TWICE DAILY Additional Information Patient taking differently: 20 mg oral every morning, Informant: Self, Reported on 07/03/2019 5:04 PM Active semaglutide (OZEMPIC) Inject 0.5 mg 0 0.25 mg or 0.5 mg(2 under the mg/1.5 mL) pen injector skin once a week. wednesday01/17/2021 Active cycloSPORINE modified Take 3 180 capsule 11 (NEORAL) 25 MG capsules (75 0 capsuleIndications: Liver mg total) by replaced by transplant mouth every (HCC) 12 (twelve) hours. 02/27/2019 Discontinued (Reorder) pantoprazole (PROTONIX) Take 1 tablet 180 tablet 3 40 MG EC tablet (40 mg total) 8 by mouth 2 (two) times a day. 03/02/2019 Discontinued (Reorder) ergocalciferol (VITAMIN Take 1 12 capsule 3 D2) 50,000 unit capsule capsule 8 (50,000 Units total) by mouth once a week. On Wednesday03/02/2019 Discontinued (Reorder) omega-3 fatty acids-fish Take 1 90 capsule 3 0 oil (FISH OIL) 300-1,000 capsule (1 g 8 mg capsule total) by mouth daily. 01/25/2019 Discontinued (Reorder) pravastatin (PRAVACHOL) Take 1 tablet 90 tablet 3 20 MG tablet (20 mg total) 8 by mouth nightly. 05/12/2019 Discontinued (Reorder) metoprolol tartrate Take 0.5 45 tablet 3 (LOPRESSOR) 25 mg tablet tablets (12.5 8 mg total) by mouth every morning. Takes 1/2 tab of the 25mg in the morning 03/02/2019 Discontinued (Reorder) cycloSPORINE modified Take 3 540 capsule 3 (NEORAL) 25 MG capsule capsules (75 8 mg total) by mouth 2 (two) times a day. 03/02/2019 Discontinued (Reorder) pantoprazole (PROTONIX) Take 1 tablet 90 tablet 3 40 MG EC tablet (40 mg total) 9 by mouth daily. 03/02/2019 Discontinued cycloSPORINE modified Take 3 540 capsule 3 02/12 (NEORAL) 25 MG capsule capsules (75 9 mg total) by mouth 2 (two) times a day. 01/18/2020 Discontinued (Dose adjustmen t) cycloSPORINE modified Take 3 540 capsule 3 02/12 0 (NEORAL) 25 MG capsule capsules (75 9 mg total) by mouth daily. 01/18/2020 Discontinued (Dose adjustmen t) cycloSPORINE modified Take 1 90 capsule 3 02/12 (NEORAL) 100 MG capsule capsule (100 9 mg total) by mouth nightly. 07/28/2019 Discontinued (Stop Taking at Discharge) aspirin (ECOTRIN) 81 MG Take 81 mg by 0 enteric coated tablet mouth daily. 05/30/2019 Discontinued (Reorder) furosemide (LASIX) 20 mg Take 20 mg by 0 tablet mouth daily. 01/18/2020 Discontinued (Med List Clean up) metoprolol tartrate TAKE 1/2 45 tablet 3 (LOPRESSOR) 25 mg tablet (ONE-HALF) 9 TABLET BY MOUTH IN THE MORNING 05/12/2019 Discontinued (Reorder) metoprolol tartrate Take 0.5 45 tablet 3 (LOPRESSOR) 25 mg tablet tablets (12.5 9 mg total) by mouth every morning. Takes 1/2 tab of the 25mg in the morning 08/04/2019 ciprofloxacin (CIPRO) 500 Take 1 tablet 14 tablet 0 MG tablet (500 mg 9 total) by mouth 2 (two) times a day for 7 days. Active Problems Problem Noted Date Presence of right artificial knee joint 06/21/2018 History of total knee arthroplasty, right 03/14/2018 Pain in both knees 12/07/2017 Primary osteoarthritis of right knee 12/07/2017 Right upper quadrant abdominal pain 10/29/2017 Right upper quadrant pain 10/29/2017 Viral illness 08/12/2017 Bladder cancer 07/23/2017 Cancer of trigone of urinary bladder 01/27/2017 Liver transplanted 03/12/2016 Testosterone deficiency 02/12/2016 Diarrhea 02/07/2016 Myopathy 02/05/2016 Immunosuppression 02/04/2016 Complication of liver transplant 02/04/2016 Biliary stricture of transplanted liver 02/04/2016 Respiratory failure, chronic 02/04/2016 Malnutrition of mild degree ([place]: 75% to less than 90% of standard 02/04/2016 weight) Anemia 02/04/2016 Pneumonia 02/04/2016 Vitamin D deficiency 02/03/2016 Obesity 02/03/2016 Kidney transplant recipient 02/03/2016 Transplanted kidney 02/02/2016 Liver transplant recipient 02/02/2016 CVA (cerebral vascular accident) 02/02/2016 Type 2 diabetes mellitus 02/02/2016 Portal hypertension 02/02/2016 Diabetes mellitus Chronic kidney disease (CKD) Moderate protein malnutrition Encounters Care Team Description Date Type Specialty Rogelio Marte MD Egwim, Chukwuma I., MD Liver replaced by transplant (HCC) (Prim siva Dx) 01/18/2020 Office Visit Transplant Rayne Rothman MD Liver replaced by transplant (HCC); GOSS (nonalcoholic steatohepatitis); Personal history of malignant neoplasm of testis ; Cancer screening; Age-related bone loss; Nocturia; Personal history of malignant neoplasm of testis 01/18/2020 Hospital Radiology Encounter Gadiel Alejo MD Liver replaced by transplant (HCC); GOSS (nonalcoholic steatohepatitis); Personal history of malignant neoplasm of testis ; Cancer screening; Age-related bone loss; Nocturia; Personal history of malignant neoplasm of testis 01/18/2020 Hospital Radiology Encounter Rayne Rothman MD Liver replaced by transplant (HCC); GOSS (nonalcoholic steatohepatitis); Personal history of malignant neoplasm of testis ; Cancer screening; Age-related bone loss; Nocturia; Personal history of malignant neoplasm of testis 01/18/2020 Hospital Radiology Encounter Rayne Rothman MD Liver replaced by transplant (HCC); GOSS (nonalcoholic steatohepatitis); Personal history of malignant neoplasm of testis ; Cancer screening; Age-related bone loss; Nocturia; Personal history of malignant neoplasm of testis 01/18/2020 Hospital Radiology Encounter Rayne Rothman MD Liver replaced by transplant (HCC); GOSS (nonalcoholic steatohepatitis); Personal history of malignant neoplasm of testis ; Cancer screening; Age-related bone loss; Nocturia; Personal history of malignant neoplasm of testis 01/18/2020 Hospital Radiology Encounter 01/18/2020 Travel 01/17/2020 Travel Anusha Man, [place] Liver replaced by transplant (HCC) (Prim siva Dx); GOSS (nonalcoholic steatohepatitis); Personal history of malignant neoplasm of testis ; Cancer screening; Age-related bone loss; Nocturia 11/19/2019 Orders Only Transplant Joshua Cameron MD CYSTOSCOPY, WITH TRANSURETHERAL FULGERAT ION OF BLADDER TUMOR 07/28/2019 [facility] Jatzlau[facility] Amybeth, COLLEEN 07/28/2019 Anesthesia Urology Event Joshua Cameron MD 07/28/2019 Hospital Urology Encounter Rayne Rothman MD 07/13/2019 Orders Only Transplant Joshua Cameron MD Preop testing (Primary Dx) 07/03/2019 Pre-Admit Pre-Admission Testi ng Testing Appointment Rayne Rothman MD Med Refill 05/30/2019 Refill Transplant Susan Martinez RN Med Refill 05/12/2019 Refill Transplant Rayne Rothman MD Med Refill 05/12/2019 Refill Transplant Rayne Rothman MD Med Refill 05/09/2019 Refill Transplant Josuha Cameron MD Pre-op testing (Primary Dx) 05/04/2019 Pre-Admit Pre-Admission Testi ng Testing Appointment Rayne Rothman MD Results 03/24/2019 Telephone Transplant Rayne Rothman MD 03/22/2019 Orders Only Transplant Rogelio Marte MD Liver replaced by transplant (HCC) (Prim siva Dx) 03/02/2019 Office Visit Transplant Rayne Rothman MD Liver replaced by transplant (HCC) 03/02/2019 Hospital Radiology Encounter Rayne Rothman MD Liver replaced by transplant (HCC) 03/02/2019 Hospital Radiology Encounter aRyne Rothman MD Liver replaced by transplant (HCC) 03/02/2019 Hospital Radiology Encounter Rayne Rothman MD Med Refill 02/27/2019 Refill Transplant Rayne Rothman MD 01/25/2019 Refill General Surgery Gwen Pino 01/25/2019 Documentation Transplant Rayne Rothman MD Liver replaced by transplant (HCC) (Prim siva Dx); Abnormal finding of blood chemistry ; Other cirrhosis of liver (HCC) ; Other specified abnormal findings of blood chemistry ; Abnormal findings on diagnostic imaging of other specified body structures ; Age-related osteoporosis without current pathological fracture 01/19/2019 Orders Only Transplant after 01/18/2019 Family History Relation Name Status Comments Father Mother Social History Date Tobacco Use Types Packs/Day Years Used Quit: 1973 Former Smoker Cigarettes 0.25 4 Smokeless Tobacco: Never Used Drinks/Week oz/Week Comments Alcohol Use none since 2013 No Sex Assigned at Date Recorded Not on file Industry Job Start Date Occupation Not on file Not on file Not on file Travel End Travel History Travel Start No recent travel history available. Date Recorded COVID-19 Exposure Response 01/18/2020 7:04 AM CDT In the last month, have you been in contact with No / Unsure someone who was confirmed or suspected to have Coronavirus / COVID-19? Last Filed Vital Signs Reading Time Taken Comments Vital Sign 131/69 01/18/2020 1:31 PM CDT Blood Pressure 73 01/18/2020 1:29 PM CDT Pulse 36.3 C (97.4 F) 01/18/2020 1:29 PM CDT Temperature 18 01/18/2020 1:29 PM CDT Respiratory Rate 95% 01/18/2020 1:29 PM CDT Oxygen Saturation - - Inhaled Oxygen Concentration 134 kg (294 lb 6.4 oz) 01/18/2020 1:29 PM CDT Weight 177.8 cm (5' 10") 01/18/2020 1:29 PM CDT Height 42.24 01/18/2020 1:29 PM CDT Body Mass Index Plan of Treatment Health Maintenance Due Date Last Done Comments DIABETIC RETINAL EYE EXAM 1949 DIABETIC FOOT EXAM 1959 COLONOSCOPY SCREENING 1999 SHINGLES VACCINES (#1) 1999 65+ PNEUMOCOCCAL VACCINE 2014 (1 of 2 - PCV13) INFLUENZA VACCINE 04/13/2020 Implants Device Identifier Shelf Expiration Date Model / Serial / L ot Implanted Type Area Manufactur er 01/11/2020 [id number] / [id number] / [id number] Itotal Ipoly 38mm X 8.5mm Patella IPM Right: Knee CONFORMIS Implant - [id number] - [id number] IMPLANT INC Implanted: Qty: 1 on 02/28/2018 by DEVICES Patel Lara MD at [facility] 08/12/2018 [id number] / / [id number] Conformis Poly Insert Mfr Knee Right : Knee Reports Invalid, Please Contact Articular Qsight Support With Proper Cat # Insert Implanted: Qty: 1 on 02/28/2018 by Patel Lara MD at [facility] 08/12/2018 [id number] / / [id number] Conformis Femoral Implant Mfr Knee Righ t: Knee Reports Invalid, Please Contact Implants, Qsight Support With Proper Cat # Repairs, Implanted: Qty: 1 on 02/28/2018 by Reconstruc Patel Lara MD at [facility] 09/12/2021 [id number] / / [id number] Cement Bone R+G 1dose [place] - Knee Joint Right: Knee [employer] [id number] Implants Implanted: Qty: 1 on 02/28/2018 by Patel Lara MD at [facility] 03/12/2021 [id number] / / [id number] Cement Bone R+G 1dose [place] - Knee Joint Right: Knee [employer] [id number] Implants Implanted: Qty: 1 on 02/28/2018 by Patel Lara MD at [facility] Denture 08/12/2018 [id number] / [id number] / [id number] Itotal Tibial Tray Right: Knee Implanted: Qty: 1 on 02/28/2018 by Patel Lara MD at [facility] Procedures Comments Procedure Name Priority Date/Time Associated Diag nosis BONE DENSITY Routine 01/18/2020 Liver replaced by 9:55 AM CDT transplant (HCC) GOSS (nonalcoholic steatohepatitis) Personal history of malignant neoplasm of testis Cancer screening Age-related bone loss Nocturia BONE DENSITY PERIPHERAL Routine 01/18/2020 Liver replaced by 9:54 AM CDT transplant (HCC) GOSS (nonalcoholic steatohepatitis) Personal history of malignant neoplasm of testis Cancer screening Age-related bone loss Nocturia XR CHEST 2 VW Routine 01/18/2020 Liver replaced by 9:23 AM CDT transplant (HCC) GOSS (nonalcoholic steatohepatitis) Personal history of malignant neoplasm of testis Cancer screening Age-related bone loss Nocturia US ABDOMINAL DOPPLER Routine 01/18/2020 Liver rep laced by 9:20 AM CDT transplant (HCC) GOSS (nonalcoholic steatohepatitis) Personal history of malignant neoplasm of testis Cancer screening Age-related bone loss Nocturia US HEPATIC Routine 01/18/2020 Liver replaced by 8:52 AM CDT transplant (HCC) GOSS (nonalcoholic steatohepatitis) Personal history of malignant neoplasm of testis Cancer screening Age-related bone loss Nocturia ESTIMATED GFR Routine 01/18/2020 7:08 AM CDT CYCLOSPORINE LEVEL, Routine 01/18/2020 Liver repl aced by RANDOM 7:08 AM CDT transplant (HCC) GOSS (nonalcoholic steatohepatitis) Personal history of malignant neoplasm of testis Cancer screening Age-related bone loss Nocturia CREATININE LEVEL, URINE, Routine 01/18/2020 Liver replaced by RANDOM 7:08 AM CDT transplant (HCC) GOSS (nonalcoholic steatohepatitis) Personal history of malignant neoplasm of testis Cancer screening Age-related bone loss Nocturia PROTEIN, URINE, RANDOM Routine 01/18/2020 Liver r eplaced by 7:08 AM CDT transplant (HCC) GOSS (nonalcoholic steatohepatitis) Personal history of malignant neoplasm of testis Cancer screening Age-related bone loss Nocturia PROSTATE SPECIFIC ANTIGEN Routine 01/18/2020 Live r replaced by 7:08 AM CDT transplant (HCC) GOSS (nonalcoholic steatohepatitis) Personal history of malignant neoplasm of testis Cancer screening Age-related bone loss Nocturia GGT Routine 01/18/2020 Liver replaced by 7:08 AM CDT transplant (HCC) GOSS (nonalcoholic steatohepatitis) Personal history of malignant neoplasm of testis Cancer screening Age-related bone loss Nocturia THYROID STIMULATING Routine 01/18/2020 Liver repl aced by HORMONE 7:08 AM CDT transplant (HCC) GOSS (nonalcoholic steatohepatitis) Personal history of malignant neoplasm of testis Cancer screening Age-related bone loss Nocturia VITAMIN D 25 HYDROXY Routine 01/18/2020 Liver rep laced by LEVEL 7:08 AM CDT transplant (HCC) GOSS (nonalcoholic steatohepatitis) Personal history of malignant neoplasm of testis Cancer screening Age-related bone loss Nocturia PROTHROMBIN TIME WITH INR Routine 01/18/2020 Live r replaced by 7:08 AM CDT transplant (HCC) GOSS (nonalcoholic steatohepatitis) Personal history of malignant neoplasm of testis Cancer screening Age-related bone loss Nocturia PARTIAL THROMBOPLASTIN Routine 01/18/2020 Liver r eplaced by TIME (PTT) 7:08 AM CDT transplant (HCC) GOSS (nonalcoholic steatohepatitis) Personal history of malignant neoplasm of testis Cancer screening Age-related bone loss Nocturia CARCINOEMBRYONIC ANTIGEN Routine 01/18/2020 Liver replaced by (CEA) 7:08 AM CDT transplant (HCC) GOSS (nonalcoholic steatohepatitis) Personal history of malignant neoplasm of testis Cancer screening Age-related bone loss Nocturia ALPHA FETOPROTEIN Routine 01/18/2020 Liver replac ed by 7:08 AM CDT transplant (HCC) GOSS (nonalcoholic steatohepatitis) Personal history of malignant neoplasm of testis Cancer screening Age-related bone loss Nocturia LIPID PANEL Routine 01/18/2020 Liver replaced by 7:08 AM CDT transplant (HCC) GOSS (nonalcoholic steatohepatitis) Personal history of malignant neoplasm of testis Cancer screening Age-related bone loss Nocturia HEMOGLOBIN A1C Routine 01/18/2020 Liver replaced by 7:08 AM CDT transplant (HCC) GOSS (nonalcoholic steatohepatitis) Personal history of malignant neoplasm of testis Cancer screening Age-related bone loss Nocturia MAGNESIUM LEVEL Routine 01/18/2020 Liver replaced by 7:08 AM CDT transplant (HCC) GOSS (nonalcoholic steatohepatitis) Personal history of malignant neoplasm of testis Cancer screening Age-related bone loss Nocturia COMPREHENSIVE METABOLIC Routine 01/18/2020 Liver replaced by PANEL 7:08 AM CDT transplant (HCC) GOSS (nonalcoholic steatohepatitis) Personal history of malignant neoplasm of testis Cancer screening Age-related bone loss Nocturia CBC WITH PLATELET AND Routine 01/18/2020 Liver re placed by DIFFERENTIAL 7:08 AM CDT transplant (HCC) GOSS (nonalcoholic steatohepatitis) Personal history of malignant neoplasm of testis Cancer screening Age-related bone loss Nocturia POC GLUCOSE Routine 07/28/2019 8:15 AM SWITCHER RI AN ELECTIVE Routine 07/28/2019 SUPRAGLOTTIC AIRWAY 7:41 AM SWITCHER CYSTOSCOPY, WITH TURBT 07/28/2019 Primary malign ant 7:28 AM SWITCHER neoplasm of lateral wall of bladder (HCC) POC GLUCOSE Routine 07/28/2019 6:18 AM SWITCHER CYCLOSPORINE LEVEL, Routine 07/13/2019 RANDOM 9:04 AM CDT PROTHROMBIN TIME WITH INR Routine 07/13/2019 9:04 AM CDT CBC WITH PLATELET AND Routine 07/13/2019 DIFFERENTIAL 9:04 AM CDT COMPREHENSIVE METABOLIC Routine 07/13/2019 PANEL (REFLEX QUEST) 9:04 AM CDT MAGNESIUM LEVEL Routine 07/13/2019 9:04 AM CDT LIPID PANEL Routine 07/13/2019 9:04 AM CDT ECG 12-LEAD Routine 07/03/2019 Preop testing 5:36 PM CDT URINE CULTURE Routine 07/03/2019 5:35 PM CDT ESTIMATED GFR Routine 07/03/2019 5:17 PM CDT HEMOGLOBIN A1C Routine 07/03/2019 Preop testing 5:17 PM CDT URINALYSIS SCREEN AND Routine 07/03/2019 Preop te sting MICROSCOPY, WITH REFLEX 5:17 PM CDT TO CULTURE HEPATIC FUNCTION PANEL Routine 07/03/2019 Preop t esting 5:17 PM CDT PROTHROMBIN TIME WITH INR Routine 07/03/2019 Preo p testing 5:17 PM CDT PARTIAL THROMBOPLASTIN Routine 07/03/2019 Preop t esting TIME (PTT) 5:17 PM CDT BASIC METABOLIC PANEL Routine 07/03/2019 Preop te sting 5:17 PM CDT CBC HEMOGRAM Routine 07/03/2019 Preop testing 5:17 PM CDT ECG PRE/POST OP Routine 05/04/2019 Pre-op testing 5:32 PM CDT HEMOGLOBIN A1C Routine 05/04/2019 Pre-op testing 5:32 PM CDT ESTIMATED GFR Routine 05/04/2019 5:00 PM CDT HEPATIC FUNCTION PANEL Routine 05/04/2019 Pre-op testing 5:00 PM CDT PROTHROMBIN TIME WITH INR Routine 05/04/2019 Pre- op testing 5:00 PM CDT PARTIAL THROMBOPLASTIN Routine 05/04/2019 Pre-op testing TIME (PTT) 5:00 PM CDT BASIC METABOLIC PANEL Routine 05/04/2019 Pre-op t esting 5:00 PM CDT CBC HEMOGRAM Routine 05/04/2019 Pre-op testing 5:00 PM CDT URINALYSIS SCREEN AND Routine 05/04/2019 Pre-op t esting MICROSCOPY, WITH REFLEX 4:48 PM CDT TO CULTURE URINE CULTURE Routine 05/04/2019 4:48 PM CDT CYCLOSPORINE LEVEL, Routine 03/22/2019 RANDOM 9:00 AM CDT PROTHROMBIN TIME WITH INR Routine 03/22/2019 9:00 AM CDT CBC WITH PLATELET AND Routine 03/22/2019 DIFFERENTIAL 9:00 AM CDT COMPREHENSIVE METABOLIC Routine 03/22/2019 PANEL (REFLEX QUEST) 9:00 AM CDT MAGNESIUM LEVEL Routine 03/22/2019 9:00 AM CDT LIPID PANEL Routine 03/22/2019 9:00 AM CDT XR CHEST 2 VW Routine 03/02/2019 Liver replaced by 11:22 AM CDT transplant (HCC) US ABDOMINAL DOPPLER Routine 03/02/2019 Liver rep laced by 10:42 AM CDT transplant (HCC) US HEPATIC Routine 03/02/2019 Liver replaced by 9:56 AM CDT transplant (HCC) DONOR SPECIFIC ANTIBODY Routine 03/02/2019 8:20 AM CDT ESTIMATED GFR Routine 03/02/2019 8:20 AM CDT CYCLOSPORINE LEVEL, Routine 03/02/2019 Liver repl aced by RANDOM 8:20 AM CDT transplant (HCC) IKNOW VIRACOR Routine 03/02/2019 Liver replaced by 8:20 AM CDT transplant (HCC) GGT Routine 03/02/2019 Liver replaced by 8:20 AM CDT transplant (HCC) THYROID STIMULATING Routine 03/02/2019 Abnormal f indings on HORMONE 8:20 AM CDT diagnostic imaging of other specified body structures Other specified abnormal findings of blood chemistry Other cirrhosis of liver (HCC) Abnormal finding of blood chemistry Liver replaced by transplant (HCC) VITAMIN D 25 HYDROXY Routine 03/02/2019 Other cir rhosis of liver LEVEL 8:20 AM CDT (HCC) Abnormal finding of blood chemistry Liver replaced by transplant (HCC) CYTOMEGALOVIRUS BY PCR Routine 03/02/2019 Liver r eplaced by 8:20 AM CDT transplant (HCC) VITAMIN D 1,25 DIHYDROXY Routine 03/02/2019 Other cirrhosis of liver LEVEL, SERUM 8:20 AM CDT (HCC) Abnormal finding of blood chemistry Liver replaced by transplant (HCC) PROTHROMBIN TIME WITH INR Routine 03/02/2019 Live r replaced by 8:20 AM CDT transplant (HCC) PARTIAL THROMBOPLASTIN Routine 03/02/2019 Other c irrhosis of liver TIME (PTT) 8:20 AM CDT (HCC) Abnormal finding of blood chemistry Liver replaced by transplant (HCC) PROTEIN, URINE, 24 HOUR Routine 03/02/2019 Liver replaced by 8:20 AM CDT transplant (HCC) CREATININE LEVEL, URINE, Routine 03/02/2019 Liver replaced by 24 HOUR 8:20 AM CDT transplant (HCC) CARCINOEMBRYONIC ANTIGEN Routine 03/02/2019 Other specified abnormal (CEA) 8:20 AM CDT findings of blood chemistry Other cirrhosis of liver (HCC) Abnormal finding of blood chemistry Liver replaced by transplant (HCC) ALPHA FETOPROTEIN Routine 03/02/2019 Other cirrho sis of liver 8:20 AM CDT (HCC) Abnormal finding of blood chemistry Liver replaced by transplant (HCC) LIPID PANEL Routine 03/02/2019 Liver replaced by 8:20 AM CDT transplant (HCC) HEMOGLOBIN A1C Routine 03/02/2019 Abnormal findin g of blood 8:20 AM CDT chemistry Liver replaced by transplant (HCC) MAGNESIUM LEVEL Routine 03/02/2019 Liver replaced by 8:20 AM CDT transplant (HCC) COMPREHENSIVE METABOLIC Routine 03/02/2019 Liver replaced by PANEL 8:20 AM CDT transplant (HCC) HC COMPLETE BLD COUNT Routine 03/02/2019 Liver re placed by W/AUTO DIFF 8:20 AM CDT transplant (HCC) after 01/18/2019 Results * Bone Density (01/18/2020 9:55 AM CDT) Specimen Narrative Performed At EXAMINATION: BONE DENSITY RADIANT CLINICAL HISTORY: Z94.4 Liver transpl ant status, K75.81 Nonalcoholic steatohepatitis (GOSS), Post transplant annual evaluation COMPARISON: 01/20/2018 The results of this study expressed as bone mineral density (BMD) were as follows: AP spine (L1-L4) BMD: 1.423 g/cm2 T-Score: 1.7 Percent change: 8.4 Dual Femur (Total Mean): BMD: 1.118 g/cm2 T-Score: 0.1 Percent change: -2.3 IMPRESSION: Normal bone mineral density. Note: The world health organization (WH O) has classified the patient's T-score as follows: Normal = T-score at or above -1.0 SD (s tandard deviation) Osteopenia = T-score between -1.0 and - 2.5 SD Osteoporosis = T-score at or below -2.5 SD Dual femur FRAX: 10 year probability of fracture: 1. Major osteoporotic: 10.7 % 2. Hip:1.5 % Trabecular Bone Score (TBS): TBS L1-L4: 1.301 , >1.350 normal, 1.200 -1.350 partially degraded microarchitecture, <1.200 degraded micr oarchitecture The 10 year probability of fracture, ad justed for FRAX: Major Osteoporotic Fracture: 10.7 % Hip Fracture: 1.6 % [facility]-[id number] Procedure Note Hm Interface, Radiology Results Incoming - 01/18/2020 10:06 AM CDT EXAMINATION: BONE DENSITY CLINICAL HISTORY: Z94.4 Liver transplant status, K75.81 Nonalcoholic steatohepatitis (GOSS), Post transplant annual evaluation COMPARISON: 01/20/2018 The results of this study expressed as bone mineral density (BMD) were as follows: AP spine (L1-L4) BMD: 1.423 g/cm2 T-Score: 1.7 Percent change: 8.4 Dual Femur (Total Mean): BMD: 1.118 g/cm2 T-Score: 0.1 Percent change: -2.3 IMPRESSION: Normal bone mineral density. Note: The world health organization (WHO) has classified the patient's T-score as follows: Normal = T-score at or above -1.0 SD (standard deviation) Osteopenia = T-score between -1.0 and -2.5 SD Osteoporosis = T-score at or below -2.5 SD Dual femur FRAX: 10 year probability of fracture: 1. Major osteoporotic: 10.7 % 2. Hip:1.5 % Trabecular Bone Score (TBS): TBS L1-L4: 1.301 , >1.350 normal, 1.200-1.350 partially degraded microarchitecture, <1.200 degraded microarchitecture The 10 year probability of fracture, adjusted for FRAX: Major Osteoporotic Fracture: 10.7 % Hip Fracture: 1.6 % [facility]-[id number] Performing Organization Address City/State/Zipcode Ph one Number [facility] [address] [place] [address] * Bone Density Peripheral (01/18/2020 9:54 AM CDT) Specimen Narrative Performed At EXAMINATION: BONE DENSITY PERIPHERAL [facility] CLINICAL HISTORY: Z94.4 Liver transpl ant status, K75.81 Nonalcoholic steatohepatitis (GOSS), Post transplant annual evaluation OSTEOPHYTES UNUSUAL VARIATION IN VERTEBRA COMPARISON: 01/20/2018 The results of this study expressed as bone mineral density (BMD) were as follows: Left Forearm (Radius 33%): BMD: 1.052 g/cm2 T-Score: 0.6 Percent change: -4.7 IMPRESSION: Normal bone mineral density. Note: The world health organization (WH O) has classified the patient's T-score as follows: Above (-1) as normal (-1) to (-2.5) as low (osteopenia) Below (-2.5) as abnormally low (osteopo rosis, increased fracture risk) [facility]-[id number] Procedure Note Interface, Radiology Results Incoming - 01/18/2020 10:06 AM CDT EXAMINATION: BONE DENSITY PERIPHERAL CLINICAL HISTORY: Z94.4 Liver transplant status, K75.81 Nonalcoholic steatohepatitis (GOSS), Post transplant annual evaluation OSTEOPHYTES UNUSUAL VARIATION IN VERTEBRA COMPARISON: 01/20/2018 The results of this study expressed as bone mineral density (BMD) were as follows: Left Forearm (Radius 33%): BMD: 1.052 g/cm2 T-Score: 0.6 Percent change: -4.7 IMPRESSION: Normal bone mineral density. Note: The world health organization (WHO) has classified the patient's T-score as follows: Above (-1) as normal (-1) to (-2.5) as low (osteopenia) Below (-2.5) as abnormally low (osteoporosis, increased fracture risk) [facility]-[id number] Performing Organization Address [facility] one Number [facility] [address] [place] [address] * XR Chest 2 Vw (01/18/2020 9:23 AM CDT) Only the most recent of 2 results within the time period is included. Specimen Narrative Performed At EXAMINATION: XR CHEST 2 VW [facility] CLINICAL HISTORY: Z94.4 Liver transpl ant status, K75.81 Nonalcoholic steatohepatitis (GOSS), Post transplant annual evaluation COMPARISON: 03/02/2019 IMPRESSION: 1.Lungs are clear. 2.Trace bilateral pleural effusions and /or mild pleural thickening. 3.Mediastinal contours and cardiac silh ouette are stable. 4.No acute osseous abnormality. 5.Embolization coils visualized in the upper mid abdomen. [id number] Procedure Note Hm Interface, Radiology Results Incoming - 01/18/2020 9:28 AM CDT EXAMINATION: XR CHEST 2 VW CLINICAL HISTORY: Z94.4 Liver transplant status, K75.81 Nonalcoholic steatohepatitis (GOSS), Post transplant annual evaluation COMPARISON: 03/02/2019 IMPRESSION: 1.Lungs are clear. 2.Trace bilateral pleural effusions and/ or mild pleural thickening. 3.Mediastinal contours and cardiac silho uette are stable. 4.No acute osseous abnormality. 5.Embolization coils visualized in the u pper mid abdomen. [id number] Performing Organization Address [facility] one Number [facility] [address] [place] [address] * US Abdominal Doppler (01/18/2020 9:20 AM CDT) Only the most recent of 2 results within the time period is included. Specimen Narrative Performed At Examination: US [facility] Clinical History: Z94.4 Liver transplan t status, K75.81 Nonalcoholic steatohepatitis (GOSS), Post transplant annual evaluation Comparison: 03/02/2019 Technique: Abdominal and pelvic Doppler duplex ultrasound was performed with callaway scale imaging, color flow imaging, and Doppler duplex with spectral analysis of the waveforms. Findings: The main portal vein measures 1.9 cm in diameter. The velocity measures 37.8 cm/s. The main, right, and left portal veins are patent with hepatopedal flow. The main, right, and left hepatic veins are patent. Right and left hepatic arteries are pat ent. The superior mesenteric vein and inferi or vena cava are patent. Splenic artery and vein at the spleen a re patent. Splenic artery and vein at midline are patent. IMPRESSION: Visualized portal and hepatic vessels a re patent with normal direction of flow. Procedure Note Interface, Radiology Results Incoming - 01/18/2020 10:20 AM CDT Examination: US ABDOMINAL DOPPLER Clinical History: Z94.4 Liver transplant status, K75.81 Nonalcoholic steatohepatitis (GOSS), Post transplant annual evaluation Comparison: 03/02/2019 Technique: Abdominal and pelvic Doppler duplex ultrasound was performed with callaway scale imaging, color flow imaging, and Doppler duplex with spectral analysis of the waveforms. Findings: The main portal vein measures 1.9 cm in diameter. The velocity measures 37.8 cm/s. The main, right, and left portal veins are patent with hepatopedal flow. The main, right, and left hepatic veins are patent. Right and left hepatic arteries are patent. The superior mesenteric vein and inferior vena cava are patent. Splenic artery and vein at the spleen are patent. Splenic artery and vein at midline are patent. IMPRESSION: Visualized portal and hepatic vessels are patent with normal direction of flow. Performing Organization Address City/State/Zipcode Ph one Number [facility] [address] [place] [address] * US Hepatic (01/18/2020 8:52 AM CDT) Only the most recent of 2 results within the time period is included. Specimen Narrative Performed At EXAMINATION: US [facility] CLINICAL HISTORY: Z94.4 Liver transpl ant status, K75.81 Nonalcoholic steatohepatitis (GOSS), liver transplan t TECHNIQUE: Sonographic imaging over the right upper quadrant with attention to liver was performed. COMPARISON: NONE. IMPRESSION: 1. Heterogeneous liver echotexture, pos sible fatty infiltration. The common bile duct has normal caliber, measuring 6.7 mm. The portal vein is patent with normal hepatopetal flow. 2.Cholecystectomy. 3.No free fluid visualized. [id number] Procedure Note Interface, Radiology Results Incoming - 01/18/2020 10:18 AM CDT EXAMINATION: US HEPATIC CLINICAL HISTORY: Z94.4 Liver transplant status, K75.81 Nonalcoholic steatohepatitis (GOSS), liver transplant TECHNIQUE: Sonographic imaging over the right upper quadrant with attention to liver was performed. COMPARISON: NONE. IMPRESSION: 1. Heterogeneous liver echotexture, poss ible fatty infiltration. The common bile duct has normal caliber, measuring 6.7 mm. The portal vein is patent with normal hepatopetal flow. 2.Cholecystectomy. 3.No free fluid visualized. [id number] Performing Organization Address [facility] one Number [facility] [address] [place] [address] * Estimated GFR (01/18/2020 7:08 AM CDT) Only the most recent of 4 results within the time period is included. Estimated GFR 64 mL/min/1.73 m2 [facility] Comment: MORMONISM [facility] Interpretation G1 >=90 Normal or high G2 60-89 Mildly decreased G3a 45-59 Mildly to moderately decreased G3b 30-44 Moderately to severely decreased G4 15-29 Severely decreased G5 <15 Kidney failure The eGFR was calculated using the Chronic Kidney Disease Epidemiology Collaboration (CKD-EPI) equation. Interpretation is based on recommendations of the National Kidney Foundation-Kidney Disease Outcomes Quality Initiative (NKF-KDOQI) published in 2014. Specimen Performing Organization Address [facility] one Number [facility] DEPARTMENT OF [address] [place] [address] PATHOLOGY AND GENOMIC MEDICINE GAMBIER MORMONISM [address] [place] [address] HOSPITAL * Cyclosporine level, random (01/18/2020 7:08 AM CDT) Only the most recent of 4 results within the time period is included. Cyclosporine 242 ng/mL [facility] Comment: MORMONISM Unless administered by HOSPITAL continuous IV drip, collect a purple top tube just before the next dose. Therapeutic range of approximately 100-500 varies mainly with type of transplant, use of other immunosuppressive agents, and evidence of toxicity or rejection. Test performed using 6Wunderkin[employer] Parole Agent chemiluminescent microparticle immunoassay for Cyclosporine on the RELOCATION MANAGER i System. Specimen Blood Performing Organization Address [facility]/Zipcode Ph one Number [facility] DEPARTMENT OF [address] [place] [address] PATHOLOGY AND GENOMIC MEDICINE [address] * Alpha fetoprotein (01/18/2020 7:08 AM CDT) Only the most recent of 2 results within the time period is included. Alpha 2.5 0.0 - 8.3 ng/mL G[facility] fetoprotein Comment: MORMONISM The Donnie 8000 AFP immunoassay HOSPITAL was used. Results obtained with different assay methods or kits should not be used interchangeably and may be different. Specimen Serum Performing Organization Address City/[facility] one Number [facility] DEPARTMENT OF [address] [place] [address] PATHOLOGY AND GENOMIC MEDICINE [address] * Protein, urine, random (01/18/2020 7:08 AM CDT) Protein, urine 23 mg/dL GAMBIER random [facility] Specimen Urine Performing Organization Address City/[facility] one Number [facility] DEPARTMENT OF [address] [place] [address] PATHOLOGY AND GENOMIC MEDICINE [address] * Creatinine level, urine, random (01/18/2020 7:08 AM CDT) Creatinine, 127 mg/dL [facility] urine, random [facility] Specimen Urine Performing Organization Address City/[facility] one Number [facility] DEPARTMENT OF [address] [place] [address] PATHOLOGY AND GENOMIC MEDICINE [address] * Vitamin D 25 hydroxy level (01/18/2020 7:08 AM CDT) Only the most recent of 2 results within the time period is included. Vitamin D, 33.8 30.0 - 150.0 ng/mL [facility] 25-hydroxy Comment: MORMONISM This assay reports the sum of HOSPITAL 25-hydroxy vitamin D3 and 25-hydroxy vitamin D2. Reference range: 0-17 years: Deficiency: less than 20ng/mL Optimum level: greater than or equal to 20 ng/mL. 18 years and older: Deficiency: less than 20ng/mL Insufficiency: 20-29 ng/mL Optimum Level: 30-80 ng/mL The assay reportable range is 3.4 155.9 ng/mL. Levels higher than 150 ng/mL may be associated with toxicity. If toxicity is clinically suspected and the reported result is >155.9 ng/mL,contact lab for alternative methods to obtain a definitive level. If separate quantitation of 25-hydroxy vitamin D3 and 25-hydroxy vitamin D2 is needed, please contact lab for alternative methods. Specimen Blood Narrative Performed At [facility] Vitamin D, 1,25-Dihydroxy [facility] DEPARTMENT OF Test Code [address] [facility] PATHOLOGY AND GENOMIC MEDICINE Performing Organization Address [facility] one Number [facility] DEPARTMENT OF [address] [place] [address] PATHOLOGY AND [facility] MEDIC[facility] [address] * Partial thromboplastin time, activated (01/18/2020 7:08 AM CDT) Only the most recent of 4 results within the time period is included. PTT 30.0 23.0 - 36.0 sec G[facility]ER Comment: MORMONISM PTT therapeutic range for HOSPITAL unfractionated heparin is 61.0-112.0 seconds which corresponds to Anti-Xa 0.3-0.7 U/ml. Specimen Blood Performing Organization Address [facility] one [facility] DEPARTMENT OF [address] [place] [address] * Prothrombin time with INR (01/18/2020 7:08 AM CDT) Only the most recent of 6 results within the time period is included. Prothrombin 13.1 11.5 - 14.5 sec [facility] INR 1.0 GAMBIER Comment: MORMONISM The International Normalized HOSPITAL Ratio (INR) is a therapeutic monitoring tool for patients who are stable on oral anticoagulant therapy. An INR of 2.0-3.0 is suggested for deep vein thrombosis/pulmonary embolism. Specimen Blood Performing Organization Address [facility] one Number [facility] DEPARTMENT OF [address] [place] [address] PATHOLOGY AND [facility] MEDIC[facility] [address] * CBC with platelet and differential (01/18/2020 7:08 AM CDT) Only the most recent of 4 results within the time period is included. Pathologist [facility] WBC 6.27 4.50 - 11.00 k/uL [facility] RBC 4.34 (L) 4.40 - 6.00 m/uL [facility] HGB 11.9 (L) 14.0 - 18.0 g/dL [facility] HCT 38.3 (L) 41.0 - 51.0 % [facility] MCV 88.2 82.0 - 100.0 fL [facility] MCH 27.4 27.0 - 34.0 pg [facility] MCHC 31.1 31.0 - 37.0 g/dL [facility] RDW - SD 48.1 37.0 - 55.0 fL [facility] MPV 10.9 8.8 - 13.2 fL [facility] Platelet count 199 150 - 400 k/uL [facility] Nucleated RBC 0.00 /100 WBC [facility] Neutrophils 56.8 39.0 - 69.0 % [facility] Lymphocytes 29.3 25.0 - 45.0 % [facility] Monocytes 9.4 0.0 - 10.0 % [facility] Eosinophils 2.7 0.0 - 5.0 % [facility] Basophils 0.5 0.0 - 1.0 % [facility] Immature 1.3 (H)Comment: "Immature 0.0 - 1.0 % [facility] granulocytes granulocytes" (promyelocytes, METHOD IST myelocytes, metamyelocytes) HOSPITAL Specimen Blood Performing Organization Address [facility] Ph one Number [facility] DEPARTMENT OF [address] [place] [address] PATHOLOGY AND [facility] MEDICINE [address] * Thyroid stimulating hormone (01/18/2020 7:08 AM CDT) Only the most recent of 2 results within the time period is included. [facility] [place] TSH 3.21 0.27 - 4.20 uIU/mL [facility] Specimen Blood Performing Organization Address City/[facility] Ph one Number [facility] DEPARTMENT OF [address] [place] [address] PATHOLOGY AND GENOMIC MEDICINE [address] * Prostate specific antigen (01/18/2020 7:08 AM CDT) PSA 1.7 0.0 - 4.0 ng/mL [facility] Comment: MORMONISM The DONNIE 8000 PSA immunoassay HOSPITAL was used. Results obtained with different assay methods or kits should not be used interchangeably and may be different. Specimen Blood Performing Organization Address City/[facility] Ph one Number [facility] DEPARTMENT OF [address] [place] [address] PATHOLOG[facility] AND [facility] [address] * Magnesium level (01/18/2020 7:08 AM CDT) Only the most recent of 4 results within the time period is included. [facility] Magnesium 1.9 1.6 - 2.4 mg/dL [facility] Specimen Blood Performing Organization Address [facility] one Number [facility] DEPARTMENT OF [address] [place] [address] PATHOLOG[facility] AND [facility]IC[facility] [address] * Hemoglobin A1c (01/18/2020 7:08 AM CDT) Only the most recent of 4 results within the time period is included. Pathologist [facility] Hemoglobin A1C 8.7 (H) 4.0 - 5.6 % G[facility] Comment: MORMONISM HbA1c cutoffs for diagnosing HOSPITAL diabetes: 4.0% - 5.6% = normal 5.7% - 6.4% = increased risk for diabetes (prediabetes)9 >=6.5% = diabetes9 Goals for glycemic control (ADA 2016) < 7.0% Target for non adults with diabetes. More or less stringent targets may be appropriate for individual patients. <7.5% Target for Children and adolescents with type 1 diabetes. Specimen Blood Performing Organization Address City/[facility] Ph one Number [facility] DEPARTMENT OF [address] [place] [address] PATHOLOGY AND GENOMIC MEDICINE [address] * GGT (01/18/2020 7:08 AM CDT) Only the most recent of 2 results within the time period is included. GGT 29 0 - 59 U/L [facility] Specimen Blood Performing Organization Address City/[facility] Ph one Number [facility] DEPARTMENT OF [address] [place] [address] PATHOLOGY AND GENOMIC MEDICINE [address] * Carcinoembryonic antigen (CEA) (01/18/2020 7:08 AM CDT) Only the most recent of 2 results within the time period is included. Pathologist [facility] CEA 2.3 0.0 - 3.8 ng/mL [facility] Comment: MORMONISM Reference range for heavy HOSPITAL smokers: 0.0 - 5.5 ng/mL The STEPHANIE Donnie 8000 CEA immunoassay was used. Results obtained with different assay methods or kits should not be used interchangeably and may be different. Specimen Serum Performing Organization Address City/State/Zipcoks Ph one Number [facility] DEPARTMENT OF [address] [place] [address] PATHOLOGY AND GENOMIC MEDICINE [address] * Lipid panel (01/18/2020 7:08 AM CDT) Only the most recent of 4 results within the time period is included. [facility] Cholesterol 239 (H) <200 mg/dL [facility] Triglycerides 365 (H) <150 mg/dL [facility] HDL cholesterol 31 (L) >40 mg/dL [facility] LDL cholesterol 160 (H)Comment: Result <100 mg/dL [facility] obtained by direct LDL [facility] Lipid panel [facility] interpretation Comment: MORMONISM Total Cholesterol (mg/dL) [facility] <200 Desirable 200-239 Borderline-high >=240 High Triglycerides (mg/dL) <150 Normal 150-199 Borderline-high 200-499 High >=500 Very high HDL Cholesterol (mg/dL) <40 Low (male) <40 Low (female) LDL Cholesterol (mg/dL) <100 Optimal 100-129 Near or above optimal 130-159 Borderline-high 160-189 High >=190 Very high Risk Catergories that modify LDL goals. Risk Catergories LDL goal (mg/dL) CHD and CHD risk equivalent <100 (10-year risk >20%) Multiple (2+) risk factors <130 (10-year risk =<20%) 0-1 risk factors <160 (<10-year risk) Defining levels of lipids in metabolic syndrome Triglycerides >=150 mg/dL HDL Cholesterol Men <40 mg/dL Women <40 mg/dL Non-HDL cholesterol is a second target for therapy in persons with high triglycerides (>=200 mg/dL) Specimen Blood Performing Organization Address City/[facility] Ph one Number [facility] DEPARTMENT OF [address] [place] [address] PATHOLOGY AND GENOMIC MEDICINE [address] * Comprehensive metabolic panel (01/18/2020 7:08 AM CDT) Only the most recent of 2 results within the time period is included. Sodium 138 135 - 148 mEq/L [facility] Potassium 3.9 3.5 - 5.0 mEq/L [facility] Chloride 101 98 - 112 mEq/L [facility] CO2 23 (L) 24 - 31 mEq/L [facility] Anion gap 14@ANIO 7 - 15 mEq/L [facility] BUN 24 (H) 8 - 23 mg/dL [facility] Creatinine 1.14 0.70 - 1.20 mg/dL [facility] Glucose 204 (H) 65 - 99 mg/dL [facility] Calcium 9.4 8.8 - 10.2 mg/dL [facility] Protein 7.3 6.3 - 8.3 g/dL [facility] Comment: [facility] Vaughn 4.6-7.0 g/dL 1 week 4.4-7.6 g/dL 7 months-1year 5.1-7.3 g/dL 1-2 years 5.6-7.5 g/dL >3 years 6.0-8.0 g/dL 18-150 6.3-8.3 g/dL Albumin 3.2 (L) 3.5 - 5.0 g/dL [facility] A/G ratio 0.8 0.7 - 3.8 [facility] Alkaline 49 40 - 129 U/L [facility]ER phosphatase [facility] AST 27 10 - 50 U/L [facility] ALT 44 5 - 50 U/L [facility] Total bilirubin 0.3 0.0 - 1.2 mg/dL [facility] Specimen Blood Performing Organization Address City/State[facility] Ph one Number [facility] DEPARTMENT OF [address] [place] [address] PATHOLOGY AND GENOMIC MEDICINE [address] * POC glucose (07/28/2019 8:15 AM SWITCHER) Only the most recent of 2 results within the time period is included. POC glucose 158 (H) 65 - 99 mg/dL [facility] Comment: MORMONISM [facility] Notified RN HOSPITAL Meter ID: [id number] Harp Regulator: Deepak Vernon Specimen Performing Organization Address City/State/Zipcode Ph one Number [facility] DEPARTMENT OF [address] [place] [address] PATHOLOGY AND GENOMIC MEDICINE G[facility]BIER MORMONISM [address] [place] [id number] HOSPITAL * Airway (07/28/2019 7:41 AM SWITCHER) Narrative Performed At Leroy Valle CRNA 019 7:42 AM Airway Performed by: Leroy Valle CRNA Authorized by: Uma Goodwin MD Location: [place] Urgency: Elective Difficult Airway: No Anesthesiologist: Rd Goodwin MD Resident/CORK MIXER/AA: Leroy Valle CRNA Performed by: resident/CORK MIXER/AA Preoxygenated with 100% O2: Yes C-spine Precautions Maintained Througho ut: Yes Mask Ventilation: Not attempted Final Airway Type: Supraglottic airwa y Final LMA: I-Gel LMA Size: 5 Number of Attempts at Approach: 1 * COMPREHENSIVE METABOLIC PANEL ([facility]) (07/13/2019 9:04 AM CDT) Only the most recent of 2 results within the time period is included. Glucose 106 (H) 65 - 99 mg/dL [facility] Comment: [facility] Fasting ING II reference interval For someone without known diabetes, a glucose value between 100 and 125 mg/dL is consistent with prediabetes and should be confirmed with a follow-up test. BUN 14 7 - 25 mg/dL [facility] ING II Creatinine 1.01 0.70 - 1.18 mg/dL [facility] Comment: [facility] For patients >49 years of age, ING II the reference limit for Creatinine is approximately 13% higher for people identified as -[place]. EGFR Non-Afr. 75 > OR = 60 [facility] [place] mL/min/1.73m2 [facility] ING II EGFR 87 > OR = 60 [facility] [place] mL/min/1.73m2 [facility] ING II BUN/creatinine NOT APPLICABLE 6 - 22 (calc) [facility] ratio [facility] ING II Sodium 140 135 - 146 mmol/L [facility] ING II Potassium 4.5 3.5 - 5.3 mmol/L [facility] ING II Chloride 106 98 - 110 mmol/L [facility] ING II CO2 26 20 - 32 mmol/L [facility] ING II Calcium 8.5 (L) 8.6 - 10.3 mg/dL [facility] ING II Protein 6.1 6.1 - 8.1 g/dL [facility] ING II Albumin, S 3.4 (L) 3.6 - 5.1 g/dL [facility] ING II Globulin, total 2.7 1.9 - 3.7 g/dL [facility] (calc) [facility] ING II Albumin/globuli 1.3 1.0 - 2.5 (calc) [facility] n ratio [facility] ING II Total bilirubin 0.6 0.2 - 1.2 mg/dL [facility] ING II Alkaline 48 40 - 115 U/L [facility] phosphatase [facility] ING II AST 35 10 - 35 U/L [facility] ING II ALT 41 9 - 46 U/L [facility] ING II Specimen Narrative Performed At FASTING:YES [facility] FASTING: YES Resulting Agency Comment Performing Organization Information: Site ID: [id number] Name: [facility] Address: [address] [place] [id number] Director: Dr. Marino Mahoney Performing Organization Address City/State/Zipcode Ph one Number [facility] [place] [address] II * ECG 12 lead (07/03/2019 5:36 PM CDT) Ventricular 75 [facility] rate Atrial rate 75 [facility] RI interval 170 [facility] QRSD interval 92 [facility] QT interval 384 [facility] QTC interval 428 [facility] P axis 1 22 [facility] QRS axis 1 14 [facility] T wave axis 25 [facility] EKG impression Normal sinus rhythm-Normal [facility] ECG-In automated comparison with ECG of 04-MAY-2019 17:32,-No significant change was found- Specimen Narrative Performed At This result has an attachment that is n ot available. Performing Organization Address City/[facility] Ph one Number [facility] MUSE [address] [place] [address] * Urine culture (07/03/2019 5:35 PM CDT) Only the most recent of 2 results within the time period is included. [facility] Urine culture SEE COMMENTComment: GAMBIER Bacteriuria screen negative. [facility] Specimen Performing Organization Address City/[facility] Ph one Number [facility] DEPARTMENT OF [address] [place] [address] PATHOLOGY AND GENOMIC MEDICINE [address] * Urinalysis screen and microscopy, with reflex to culture (07/03/2019 5:17 PM CDT) Only the most recent of 2 results within the time period is included. Pathologist [facility] Specimen site Clean catch [facility] Color, UA Straw [facility] Appearance, UA Clear [facility] Specific 1.013 1.001 - 1.035 GAMBIER gravity, [facility] pH, UA 6.0 5.0 - 8.5 [facility] Protein, UA Negative Negative [facility] Glucose, UA Negative Negative [facility] Ketones, UA Negative Negative [facility] Bilirubin, UA Negative Negative [facility] Blood, UA Moderate (A) Negative [facility] Nitrite, UA Negative Negative [facility] Urobilinogen, <2.0 <2.0 [facility] Leukocyte Negative Negative GAMBIER esterase, [facility] WBC, UA 1 0 - 1 /HPF [facility] RBC, UA 6 (H) 0 - 5 /HPF [facility] Bacteria, UA None seen None seen [facility] Yeast, UA None seen [facility] Yeast with None seen [facility] Hyaline casts, 4 /LPF [facility] Specimen Urine Performing Organization Address [facility] one Number [facility] DEPARTMENT OF [address] [place] [address] PATHOLOGY AND GENOMIC MEDICINE [address] * CBC hemogram (07/03/2019 5:17 PM CDT) Only the most recent of 2 results within the time period is included. [facility] WBC 7.91 4.50 - 11.00 k/uL [facility] RBC 4.66 4.40 - 6.00 m/uL [facility] HGB 12.5 (L) 14.0 - 18.0 g/dL [facility] HCT 41.8 41.0 - 51.0 % [facility] MCV 89.7 82.0 - 100.0 fL [facility] MCH 26.8 (L) 27.0 - 34.0 pg [facility] MCHC 29.9 (L) 31.0 - 37.0 g/dL [facility] RDW - SD 45.2 37.0 - 55.0 fL [facility] MPV 11.8 8.8 - 13.2 fL [facility] Platelet count 200 150 - 400 k/uL [facility] Nucleated RBC 0.00 /100 WBC [facility] Specimen Blood Performing Organization Address [facility] Ph one Number [facility] DEPARTMENT OF [address] [place] [address] PATHOLOGY AND GENOMIC MEDICINE [address] * Hepatic function panel (07/03/2019 5:17 PM CDT) Only the most recent of 2 results within the time period is included. Pathologist [facility] Albumin 3.5 3.5 - 5.0 g/dL [facility] Total bilirubin 0.5 0.0 - 1.2 mg/dL [facility] Bilirubin <0.2 0.0 - 0.3 mg/dL GAMBIER direct [facility] Alkaline 60 40 - 129 U/L GAMBIER phosphatase [facility] Protein 7.6 6.3 - 8.3 g/dL GAMBIER Comment: [facility]OR[facility]ISM Fyqfbib6835.6-7.0 g/dL HOSPITAL 1 vahj4439.4-7.6 g/dL 7 months-5kwwo267.1-7.3 g/dL 1-2 gguwf901.6-7.5 g/dL >3 uryuj407.0-8.0 g/dL 18-1288579.3-8.3 g/dL ALT 92 (H) 5 - 50 U/L [facility] AST 129 (H) 10 - 50 U/L [facility] Specimen Plasma specimen Performing Organization Address City/[facility] Ph one Number [facility] DEPARTMENT OF [address] [place] [address] PATHOLOGY AND GENOMIC MEDICINE [address] * Basic metabolic panel (07/03/2019 5:17 PM CDT) Only the most recent of 2 results within the time period is included. [facility] Sodium 140 135 - 148 mEq/L [facility] Potassium 4.5 3.5 - 5.0 mEq/L [facility] Chloride 100 98 - 112 mEq/L [facility] CO2 26 24 - 31 mEq/L [facility] Anion gap 14@ANIO 7 - 15 mEq/L [facility] BUN 23 8 - 23 mg/dL [facility] Creatinine 1.29 (H) 0.70 - 1.20 mg/dL [facility] Glucose 163 (H) 65 - 99 mg/dL [facility] Calcium 10.0 8.8 - 10.2 mg/dL [facility] Specimen Plasma specimen Performing Organization Address [facility] one Number [facility] DEPARTMENT OF [address] [place] [address] PATHOLOGY AND GENOMIC MEDICINE [address] * ECG Pre/Post Op (05/04/2019 5:32 PM CDT) [facility] Ventricular 82 [facility] rate Atrial rate 82 [facility] RI interval 172 [facility] QRSD interval 94 [facility] QT interval 370 [facility] QTC interval 432 [facility] P axis 1 43 [facility] QRS axis 1 10 [facility] T wave axis 26 [facility] EKG impression Normal sinus rhythm-Normal [facility] MUSE ECG-In automated comparison with ECG of -SEP-2018 14:33,-No significant change was found- Specimen Narrative Performed At This result has an attachment that is n ot available. Performing Organization Address City/[facility] [place] [address] * Cytomegalovirus by PCR (03/02/2019 8:20 AM CDT) [facility] Cytomegalovirus Not-Detected Not-Detected IU/mL GAMBIER by PCR [facility] Cytomegalovirus See link below for PDF Lab GAMBIER by PCR ReportComment: Case Number: [facility] [id number] [facility] Specimen Performing Organization Address City/[facility]/Zipcode Ph one Number [facility] DEPARTMENT OF [address] [place] [address] PATHOLOGY AND GENOMIC MEDICINE [address] * IKNOW Viracor (03/02/2019 8:20 AM CDT) [facility] Virac[facility] 330 ATP ng/mL GAMBIER Comment: MORMONISM [facility] ATP (Cylex) [facility] Assay Range: Low Immune Cell Response: </= 225 ATP ng/ml Moderate Immune Cell Response: 226-524 ATP ng/ml Strong Immune Cell Response: >/= 525 ATP ng/ml Test performed by: VIRACOR/IBT [address] [place] [address] Specimen Blood Performing Organization Address City/[facility] Ph one Number [facility] DEPARTMENT OF [address] [place] [address] PATHOLOGY AND GENOMIC MEDICINE [address] * Donor specific antibody (03/02/2019 8:20 AM CDT) DSA ADDITIONAL ANTIBODY GAMBIER interpretation INFORMATION [facility] DQ2=DQB1*02:01/DQA1*04:01/DQA1 [facility] *05:01 DQ8=DQB1*03:02/DQA1*03:02 DSA serum ID [id number] [facility] DSA serum 03/02/2019 08:20 AM GAMBIER collection D&T [facility] DSA class I Negative [facility] DSA antibody I NONE [facility] DSA cPRA class [address] [facility] DSA class II DQ7,DQ2,DQ4,DQ8 GAMBIER antibody [facility] DSA antibody II STRONG DQ2, WEAK DQ8 [facility] DSA cPRA class 81 [facility] Donor specific See link below for PDF Lab GAMBIER antibody Report [facility] Specimen Blood Performing Organization Address City/[facility]/Zipcode Ph one Number [facility] DEPARTMENT OF [address] [place] [address] PATHOLOGY AND GENOMIC MEDICINE [address] HOSPITAL * Creatinine level, urine, 24 hour (03/02/2019 8:20 AM CDT) Collection 03/01/19 GAMBIER start date, [facility] urine HOSPITAL Collection 730 GAMBIER start time, [facility] urine [facility]OSPITAL Collection stop 03/02/2019 G[facility]BIER date, urine [facility] Collection stop 730 G[facility]BIER time, urine [facility] Hours of 24 GAMBIER collection [facility] Total volume, 500 mL GAMBIER urine [facility] Urine 117 mg/dL GAMBIER creatinine [facility] Urine 585 (L) 1,000 - 2,000 GAMBIER creatinine 24 mg/24hrs [facility] hr excretion HOSPITAL Specimen Urine Performing Organization Address City/[facility] Ph one Number [facility] [place] [address] PATHOLOGY AND GENOMIC MEDICINE [address] * Protein, urine, 24 hour (03/02/2019 8:20 AM CDT) Collection 03/01/19 [facility] date, [facility]ORMONISM urine HOSPITAL Collection 730 [facility] time, [facility]PITAL Collection stop 03/02/2019 GAMBIER date, urine [facility] Collection stop 730 GAMBIER time, urine [facility] Hours of 24 [facility] Total volume, 500 mL GAMBIER urine [facility] Urine protein 8 mg/dL GAMBIER concentration [facility] Urine protein 40 0 - 150 mg/24hrs GAMBIER 24 hr excretion [facility] Specimen Urine Performing Organization Address City/[facility] Ph one Number [facility] [place] [address] PATHOLOGY AND GENOMIC MEDICINE [address] * Vitamin D 1,25 dihydroxy level, serum (03/02/2019 8:20 AM CDT) Vit D, 16.82 (L) 18.00 - 64.00 pg/mL GAMBIER 1,25-Dihydroxy Comment: MORMONISM This test was developed and HOSPITAL its performance characteristics determined by the Department of Pathology and Genomic Medicine, [facility]. Serum 1,25 Dihydroxy Vitamin D is tested by LC-MS/MS. It has not been cleared or approved by FDA. The laboratory is regulated under CLIA as qualified to perform high-complexity testing. This test is used for clinical purposes. It should not be regarded as investigational or for research. 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
--- OUTSIDE RECORDS SUMMARY | 2020-01-19 10:35 | XMS REPORT | Summary of Care ---
Author Author [facility] Organization [facility] Address Unknown Phone Unavailable Encounter HQ Ching_sydney(MUNDO) [id number] Date(s): 10/29/16 - 10/29/16 [facility] [address] [place] [address]- [phone] Discharge Disposition: Home or Self Care Attending Physician: Lay Reddy MD Referring Physician: Lay Reddy MD Vital Signs 1 2 3 Most recent to oldest [Reference Range]: 180.34 cm (10/29/16 6:30 AM) 180.34 cm (10/23/16 1:22 PM) Height 97.7 DegF (10/29/16 6:30 AM) Temperature Oral [96.4-99.1 DegF] 115/70 mmHg (10/29/16 8:15 AM) 112/70 mmHg (10/29/16 8:00 AM) 105/63 mmHg (10/29/16 7:45 AM) Blood Pressure [90-140/60-90 mmHg] 16 BRMIN (10/29/16 8:15 AM) 15 BRMIN (10/29/16 8:00 AM) 14 BRMIN (10/29/16 7:45 AM) Respiratory Rate [14-20 BRMIN] 65 bpm (10/29/16 8:15 AM) 67 bpm (10/29/16 8:00 AM) 68 bpm (10/29/16 7:45 AM) Peripheral Pulse Rate [60-100 bpm] 117.727 kg (10/29/16 6:30 AM) 113.636 kg (10/23/16 1:22 PM) Weight 36.2 m2 (10/29/16 6:30 AM) 34.94 m2 (10/23/16 1:22 PM) Body Mass Index Problem List Condition Effective Dates Status Health Status Informan t Diabetes(Confirmed) Active Dizziness(Confirmed) Active Hypertension(Confirm Active ed) Depression(Confirmed Active ) Fatty liver disease, Active nonalcoholic(Confirm ed) Neuropathy(Confirmed Active ) Allergies, Adverse Reactions, Alerts Substance Reaction Severity Status propranolol itching Active spironolactone blurred vision Active Medications aspirin 81 mg tablet, enteric coated 81 mg = 1 tab, PO, Daily, # 0 tab, 0 Refill(s) Start Date: 10/26/16 Status: Ordered calcium-vitamin D 500 mg-200 intl units oral tablet 1 tab, PO, BID, 0 Refill(s) Start Date: 10/26/16 Status: Ordered cycloSPORINE modified 100 mg oral capsule 100 mg = 1 cap, PO, Q12H, 0 Refill(s) Start Date: 10/26/16 Status: Ordered ergocalciferol 50,000 intl units oral capsule 50,000 IntlUnit = 1 cap, PO, Daily, 0 Refill(s) Start Date: 10/26/16 Status: Ordered escitalopram 10 mg oral tablet 10 mg = 1 tab, PO, Daily, 0 Refill(s) Start Date: 10/26/16 Status: Ordered furosemide 20 mg oral tablet 20 mg = 1 tab, PO, Daily, 0 Refill(s) Start Date: 10/26/16 Status: Ordered Lactated Ringers 1,000 mL 1,000 mL, Rate: 25 ml/hr, Infuse over: 40 hr, Route: IV, Dosing Weight 117.727 k g, Total Volume: 1,000, Start date: 10/29/16 7:14:00 GINSENG FARMER, Duration: 30 day, Stop date: 11/28/16 7:13:00 CDT Start Date: 10/29/16 Stop Date: 10/30/16 Status: Discontinued Levemir 100 units/mL 15 unit, SUB-Q, Bedtime, 0 Refill(s) Start Date: 10/26/16 Status: Ordered magnesium oxide 400 mg oral tablet 400 mg = 1 tab, PO, Daily, 0 Refill(s) Start Date: 10/26/16 Status: Ordered metoprolol tartrate 25 mg oral tablet 12.5 mg = 0.5 tab, PO, BID, 0 Refill(s) Start Date: 10/26/16 Status: Ordered mirtazapine 15 mg oral tablet 15 mg = 1 tab, PO, Bedtime, 0 Refill(s) Start Date: 10/26/16 Status: Ordered modafinil 100 mg oral tablet 100 mg = 1 tab, PO, QAM, 0 Refill(s) Start Date: 10/26/16 Status: Ordered multivitamin with minerals 0 Refill(s) Start Date: 10/26/16 Status: Ordered mycophenolate mofetil 500 mg oral tablet 500 mg = 1 tab, PO, BID, 0 Refill(s) Start Date: 10/26/16 Status: Ordered [place]-3 1000 mg oral capsule 1,000 mg = 1 cap, PO, BID, 0 Refill(s) Start Date: 10/26/16 Status: Ordered Saline Flush 0.9% 10 ml, Route: IVP, Drug Form: INJ, Dosing Weight 117.727, kg, PRN, PRN Line Flus h, Start date: 10/29/16 7:22:00 GINSENG FARMER, Duration: 30 day, Stop date: 11/28/16 8:21: 00 CDT Notes: Same as: BD Posiflush Sterile Start Date: 10/29/16 Stop Date: 10/30/16 Status: Discontinued sulfamethoxazole-trimethoprim DS 800 mg-160 mg oral tablet 1 tab, PO, Q-M-W-F, 0 Refill(s) Start Date: 10/26/16 Status: Ordered Tradjenta 5 mg oral tablet 5 mg = 1 tab, PO, QAM, 0 Refill(s) Start Date: 10/26/16 Status: Ordered Results ELECTROLYTES Most recent to 1 oldest [Reference Range]: Sodium Lvl [135-145 139 mEq/L mEq/L] (10/29/16 6:32 AM) Potassium Lvl 4.6 mEq/L [3.5-5.1 mEq/L] (10/29/16 6:32 AM) Chloride Lvl [95-109 102 mEq/L mEq/L] (10/29/16 6:32 AM) CO2 [24-32 mEq/L] 27 mEq/L (10/29/16 6:32 AM) AGAP [10.0-20.0 14.6 mEq/L mEq/L] (10/29/16 6:32 AM) CHEM PANEL Most recent to 1 oldest [Reference Range]: Creatinine Lvl 1.44 mg/dL [0.50-1.40 mg/dL] *HI* (10/29/16 6:32 AM) eGFR 50 mL/min/1.73m2 1 *NA* (10/29/16 6:32 AM) BUN [7-22 mg/dL] 26 mg/dL *HI* (10/29/16 6:32 AM) B/C Ratio [6-25] 18 (10/29/16 6:32 AM) Glucose Lvl [70-99 119 mg/dL mg/dL] *HI* (10/29/16 6:32 AM) Total Protein 7.1 g/dL [6.4-8.4 g/dL] (10/29/16 6:32 AM) Albumin Lvl [3.5-5.0 3.4 g/dL g/dL] *LOW* (10/29/16 6:32 AM) Globulin [2.7-4.2 3.7 g/dL g/dL] (10/29/16 6:32 AM) A/G Ratio [0.7-1.6] 0.9 (10/29/16 6:32 AM) Calcium Lvl 8.3 mg/dL [8.5-10.5 mg/dL] *LOW* (10/29/16 6:32 AM) ALT [0-65 unit/L] 26 unit/L (10/29/16 6:32 AM) AST [0-37 unit/L] 20 unit/L (10/29/16 6:32 AM) Alk Phos [39-136 113 unit/L unit/L] (10/29/16 6:32 AM) Bili Total [0.2-1.3 0.4 mg/dL mg/dL] (10/29/16 6:32 AM) 1Result Comment: The eGFR is calculated [...] be mul tiplied by the estimated BMI. HEMATOLOGY Most recent to 1 oldest [Reference Range]: WBC [3.7-10.4 K/CMM] 7.5 K/CMM (10/29/16 6:32 AM) RBC [4.70-6.10 4.53 M/CMM M/CMM] *LOW* (10/29/16 6:32 AM) Hgb [14.0-18.0 g/dL] 13.2 g/dL *LOW* (10/29/16 6:32 AM) Hct [42.0-54.0 %] 40.4 % *LOW* (10/29/16 6:32 AM) MCV [80.0-94.0 fL] 89.1 fL (10/29/16 6:32 AM) MCH [27.0-31.0 pg] 29.0 pg (10/29/16 6:32 AM) MCHC [32.0-36.0 32.6 g/dL g/dL] (10/29/16 6:32 AM) RDW [11.5-14.5 %] 15.6 % *HI* (10/29/16 6:32 AM) Platelet [133-450 147 K/CMM K/CMM] (10/29/16 6:32 AM) MPV [7.4-10.4 fL] 8.9 fL (10/29/16 6:32 AM) Segs [45.0-75.0 %] 47.3 % (10/29/16 6:32 AM) Lymphocytes 35.9 % [20.0-40.0 %] (10/29/16 6:32 AM) Monocytes [2.0-12.0 12.7 % %] *HI* (10/29/16 6:32 AM) Eosinophils [0.0-4.0 3.3 % %] (10/29/16 6:32 AM) Basophils [0.0-1.0 0.8 % %] (10/29/16 6:32 AM) Segs-Bands # 3.6 K/CMM [1.5-8.1 K/CMM] (10/29/16 6:32 AM) Lymphocytes # 2.7 K/CMM [1.0-5.5 K/CMM] (10/29/16 6:32 AM) Monocytes # [0.0-0.8 1.0 K/CMM K/CMM] *HI* (10/29/16 6:32 AM) Eosinophils # 0.2 K/CMM [0.0-0.5 K/CMM] (10/29/16 6:32 AM) Basophils # [0.0-0.2 0.1 K/CMM K/CMM] (10/29/16 6:32 AM) PT [12.0-14.7 12.6 seconds seconds] (10/29/16 6:32 AM) INR [0.85-1.17] 0.92 (10/29/16 6:32 AM) PTT [22.9-35.8 33.1 seconds seconds] (10/29/16 6:32 AM) Immunizations No data available for this section Procedures Procedure Date Related Diagnosis Body Site Kidney transplantation1 12/31/15 Transplantation of liver 12/31/15 Knee replacement2 2008 Elbow joint operations 1right 2left Social History Social History Type Response Substance Abuse Use: None. Alcohol Past, Previous treatment: N one. Smoking Status Never smoker; Exposure to T obacco Smoke None; Cigarette Smoking Last 365 Days No; Reg Smoking Cessation Counseli ng No Assessment and Plan No data available for this section
--- OUTSIDE RECORDS SUMMARY | 2020-01-19 10:35 | XMS REPORT | Summary of Care ---
Author Author [facility] Organization [facility] Address Unknown Phone Unavailable Encounter HQ Encntr_alias(FIN) [id number] Date(s): 10/16/15 - 10/16/[address] Discharge Disposition: Home Attending Physician: Melissa Masterson MD Vital Signs No data available for this section Problem List No data available for this section Allergies, Adverse Reactions, Alerts Substance Reaction Severity Status NKDA Active Medications No data available for this section Results No data available for this section Immunizations No data available for this section Procedures No data available for this section Social History No data available for this section Assessment and Plan No data available for this section
--- OUTSIDE RECORDS SUMMARY | 2020-01-19 10:35 | XMS REPORT | Summary of Care ---
Author Author [facility] Organization [facility] Address Unknown Phone Unavailable Encounter HQ Ninfa(MUNDO) [id number] Date(s): 08/29/15 - 08/29/15 [facility] [address] [place] [address] Discharge Disposition: Home Attending Physician: Rogelio Matre MD Referring Physician: Arron Cee NP CHIEF STRATEGY OFFICER Vital Signs No data available for this section Problem List No data available for this section Allergies, Adverse Reactions, Alerts Substance Reaction Severity Status NKDA Active Medications No data available for this section Results BODY FLUIDS Most recent to 1 oldest [Reference Range]: Color BF [Colorless] Yellow (08/29/15 12:33 PM) Clarity BF [Clear] Moderate Cloudy *ABN* (08/29/15 12:33 PM) RBC BF 2820 /mm3 *NA* (08/29/15 12:33 PM) WBC BF 575 /mm3 *NA* (08/29/15 12:33 PM) Segs BF 1 % *NA* (08/29/15 12:33 PM) Lymph BF 13 % *NA* (08/29/15 12:33 PM) Macrophage BF 86 % *NA* (08/29/15 12:33 PM) CellCnt BF Type Paracen (08/29/15 12:33 PM) Immunizations No data available for this section Procedures No data available for this section Social History No data available for this section Assessment and Plan No data available for this section
--- NOTE | 2020-01-19 10:45 | NUR ---
PATIENT REFUSING MEDICAL TREATMENT. PATIENT REFUSING IV, BLOOD DRAW, OR COVID TESTING. PATIENT YELLING AND VERBALLY ABUSIVE IN TRIAGE. PATIENT DENIES ANY COMPLAINTS, PAIN, OR OTHER ISSUES AT THIS TIME
--- NOTE | 2020-01-19 10:47 | NUR ---
PT REFUSED IV, LABS, COVID, RADIOLOGY OR ANY TESTING; STATES HE'S GOING HOME. PT AND STATE DR BOLANOS "IS WRONG" AND "DONT KNOW WHAT THEYRE TALKING ABOUT." PT STATES HE'S "NORMAL" AND DOESNT NEED TO BE HERE. PT YELLING IN TRIAGE AND VERBALLY ABUSIVE TO STAFF.
== END 2020-01-19 10:52 | disposition home or self-care (01) ==
LOC: ER 10:29
DX: R50.9 Fever, unspecified (principal); Z94.0 Kidney transplant status; Z94.4 Liver transplant status
CPT/HCPCS: 99281